=== PATIENT | female | born 1940 | race Caucasian/White ===

== ENCOUNTER 2016-12-17 11:35 | Inpatient (IN) ==
--- NOTE | 2016-12-17 12:34 | Ultrasound Report ---
Exam: US venous doppler LE RT Indication: Right flank pain Date: 12/17/2016 Findings: Grayscale color flow duplex/Doppler imaging and spectral analysis waveform imaging was performed with real-time ultrasound with image stored and captured. The right common femoral, superficial femoral, popliteal saphenous veins are patent with normal augmentation and compression. There is no evidence of popliteal or [place]ro's cyst. Normal wave form analysis present. Normal color flow Impression: 1. No DVT PROCEDURE INTERPRETED AT [facility] Final Report Signed by: Dr. Dillan Kapoor
[2016-12-17] MEDS ORDERED: ALUMINUM/MAGNES/SIMETH MAX STR 30 ML UDCUP PO PRN (16:38)
[2016-12-17] MEDS ORDERED: ACETAMINOPHEN 325 MG TABLET PO PRN (16:38)
[2016-12-17] MEDS ORDERED: GLUCAGON 1 MG VIAL IM PRN (16:38)
[2016-12-17] MEDS ORDERED: BISACODYL 5 MG TABLET PO PRN (16:38)
[2016-12-17] MEDS ORDERED: HYDROmorphone 2 MG/1 ML VIAL IV PRN (16:38)
[2016-12-17] MEDS ORDERED: ONDANSETRON 4 MG/2 ML VIAL IV PRN (16:38)
[2016-12-17] MEDS ORDERED: SODIUM CHLORIDE 0.45% 1,000 ML IV SCH (17:00)
--- NOTE | 2016-12-17 17:02 | General Surg History&Physical ---
Assessment and Plan - Time spent with patient Time spent with patient: Greater than 30 minutes (1) Hematoma of right lower extremity Status: Acute Assessment and plan: Impression: 1. Hematoma of the right lower extremity 2. Chonic venous stasis disease 3. Obesity 4. CRF Plan> surgical debridement and wound care. Current Visit: Yes History of Present Illness Chief complaint: Hematoma of the right leg History of present illness: Ms. Moreau is a 76 year old female obese renal failure patient who sustained trauma to the right leg last week and developed swelling and brusing. Onset of drainage today and has large amount of necrotic tissue present. She had dialysis today and feeling extremily weak and nauseated. She is in no shape to go home and needs surgery for debridement and drainage of the right leg in surgery. Allergies Allergy/AdvReac Type Severity Reaction Status Date / Time Penicillins Allergy Severe UNCONSCIOUS Verified 04/12/15 08:23 Medical,Surgical,& Family Hx - Medical History Neurology: No history of: Seizures Renal: History of: Dialysis - Surgical History Abdominal Surgeries: Surgical HX of: Cholecystectomy Orthopedic Surgeries: Surgical HX of;: Orthopedic Surgery - Social History Smoking Status: Never smoker Marital Status: Lives With:: Spouse Functional capacity: wheelchair bound Exam - Constitutional Vitals: Period Temp Pulse Resp BP Sys/Harrison Pulse Ox Last 24 Hr 97.2 F 71 14 157/68 97 General appearance: mild distress - Head Head exam: Present: normal inspection - ENT ENT exam: Present: normal exam - Neck Neck exam: Present: normal inspection - Respiratory Respiratory exam: Present: clear to auscultation bilaterally, rales, rhonchi - Cardiovascular Cardiovascular exam: Present: RRR - GI/Abdominal GI/Abdominal exam: Present: hypoactive bowel sounds, soft. Absent: tenderness - Extremities Exam Extremities exam: Present: other (Large hematoma of the right leg with drainage and necrotic skin of 2/3 of the leg) - Back Exam Back exam: Present: normal inspection - Neurological Exam Neurological exam: Present: alert, oriented X3, CN II-XII intact - Skin Skin exam: Present: normal color, warm, dry 12 point system: reviewed and no additional remarkable complaints except as stated Quality Measures - VTE Contraindication to Pharmacological VTE Prophylaxis: High Risk of Bleeding
--- NOTE | 2016-12-17 17:04 | EKG Report ---
Stationary ECG Study [facility] Test Date: 12/17/2016 5:01:06 PM Pat Name: ALBA RODRIGUES Department: Room: 343 Gender: F Propagation Manager: SEBASTIÁN : 1940 Requested by: Maximiliano Lechuga Order Number: [id number] Reading MD: LISA JOAQUIN Intervals [place] Rate: 82 P: 87 IN: 254 QRS: -40 QRSD: 82 T: 65 QT: 402 QTc: 440 Interpretive Statements SINUS RHYTHM WITH PROLONGED IN INTERVAL WITH OCCASIONAL SUPRAVENTRICULAR PREMATURE COMPLEXES MARKED LEFT AXIS DEVIATION Electronically Signed On 12-17-16 18:07:18 CDT by LISA JOAQUIN [email or web address]
[2016-12-17 17:37] LABS: Basophils % 0.4 % (0.0-0.8); Eosinophils # 0.1 10*3/uL (0.0-0.87); Eosinophils % 1.4 % (0.00-10.9); Hematocrit 33.3 VOL% (35.7-47.0); Hemoglobin 10.4 GM/DL (12.0-16.0); Immature Granulocytes % 2.1 %; Immature Granulocytes Absolute 0.21 #; Lymphocytes # 1.4 10*3/uL (1.4-4.0); Lymphocytes % 14.1 % (21.3-54.2); Mean Corpuscular HGB Conc 31.2 GM/DL (32-36); Mean Corpuscular Hemoglobin 33 PG (27-34); Mean Corpuscular Volume 104.1 FL (87-102); Monocytes # 0.7 10*3/uL (0.11-0.8); Monocytes % 6.5 % (1.7-12.7); Neutrophils # 7.6 10*3/uL (1.4-7.4); Neutrophils % 75.5 % (38.7-73.9); Platelet Count 157 T/CUMM (130-400); Red Cell Distribution Width 14.3 % (9.3-17.3)
[2016-12-17 17:48] LABS: PT Patient Result 10.3 SECS; Partial Thromboplastin Time 25.8 SECS (0-40)
--- NOTE | 2016-12-17 18:02 | XRay Report ---
Portable chest Date: 12/17/2016 Clinical history: Respiratory preoperative evaluation Comparison: 08/01/2014 Technique: Portable AP sitting chest Findings: Stable cardiomegaly with calcification in the aortic knob. Expiratory chest with progressive diffuse parenchymal findings especially at the lung bases. Stable mediastinum and osseous structures. Metallic stent in the left subclavian location. Impression: Limited expiratory chest with progressive mild CHF with atelectasis at the lung bases. Metallic stent and left subclavian location. PROCEDURE INTERPRETED AT [facility] DEPARTMENT OF RADIOLOGY Final Report Signed by: Dr. Ifeoma Foote
[2016-12-17 18:13] LABS: Albumin 3.2 G/DL (3.4-5.0); Bilirubin,Total 0.4 MG/DL (0.2-1.0); Calcium 8.9 MG/DL (8.5-10.1); Osmolality,Calculated 289.3 MOS/KG (273-304); Total Protein 6.5 G/DL (6.4-8.3)
[2016-12-17] MEDS: DOCUSATE SODIUM 100 MG CAPSULE PO SCH (21:28)
[2016-12-17] MEDS: GABAPENTIN 100 MG CAPSULE PO SCH (21:28)
[2016-12-17] MEDS: MEROPENEM 500 MG in SODIUM CHLORIDE 0.9% 100 ML IV SCH (21:30)
[2016-12-18] MEDS: DEXTROSE 50% 25 GM/50 ML VIAL IV PRN (08:11)
[2016-12-18] MEDS: DEXTROSE 5% NACL 0.45% 1,000 ML IV SCH (08:27)
--- NOTE | 2016-12-18 08:34 | Internal Medicine Consult Note ---
Assessment and Plan (1) Hematoma of right lower extremity Problem details: Debridement by surgery yesterday. Status: Acute Assessment and plan: 76-year-old female admitted to acute care * Hematoma of the right lower extremity. She will undergo excision and debridement today. Started on empiric antibiotics * End-stage renal disease. On hemodialysis 3 times a week. Consult renal * Hypotension. Continue midodrine * Diabetes. She is on a sliding scale. Continue Amaryl * Depression. She is doing well * Discussed with patient and her Current Visit: Yes (2) End-stage renal disease on hemodialysis Problem details: HD today Status: Acute Current Visit: Yes (3) Diabetes Status: Acute Current Visit: Yes (4) Orthostatic hypertension Status: Acute Current Visit: Yes (5) Hyperlipidemia Status: Acute Current Visit: Yes (6) Depression Status: Acute Current Visit: Yes (7) Morbid obesity Status: Acute Current Visit: Yes History of Present Illness - Data of Consult Patient: known to practice within the last 3 years - Consult Narrative Reason for consult: Medical management History of present illness: Ms. Moreau is a 76 year old female with history of multiple medical problems including diabetes, end-stage renal disease on hemodialysis 3 times a week, orthostatic hypotension, morbid obesity who was admitted because of large hematoma with necrotic tissue on the right lower extremity after she sustained trauma. She developed swelling and bruising. Skin has broken down. She was seen in the office and referred to surgery. Patient denies any chest pain or shortness of breath. Patient denies any nausea vomiting or diarrhea. Patient denies any fever or chills. She is having significant pain on in her lower extremity. She lives at home with her . No history of smoking or alcohol use. CC: [place] Marina MD - Home Medications and Allergies Home Medications: Home Medications Medication Instructions Recorded Confirmed Type Aspirin [Ecotrin] 81 mg PO DAILY 12/17/16 12/17/16 History Cinacalcet [Sensipar] 30 mg PO DAILY 12/17/16 12/17/16 History Ciprofloxacin Tab [Cipro Tab] 250 mg PO DAILY 12/17/16 12/17/16 History Gabapentin [Gabapentin] 100 mg PO TID 12/17/16 12/17/16 History Glimepiride [Amaryl] 6 mg PO DAILY W/BREAKFAST 06/28/17 06/28/17 History Metoclopramide HCl 5 mg PO DAILY 12/17/16 12/17/16 History Midodrine HCl 5 mg PO DAILY 12/17/16 12/17/16 History Pravastatin Sodium 80 mg PO DAILY 12/17/16 12/17/16 History Sertraline [Zoloft] 50 mg PO DAILY 12/17/16 12/17/16 History Sevelamer Carbonate Tab [Renvela 800 mg PO TID W/MEALS 12/17/16 12/17/16 History Tab] Allergies/Adverse Reactions: Allergies Allergy/AdvReac Type Severity Reaction Status Date / Time Penicillins Allergy Severe UNCONSCIOUS Verified 04/12/15 08:23 12 point system: reviewed and no additional remarkable complaints except as stated (As mentioned in HPI) Medical,Surgical,& Family Hx - Medical History Cardio: History of: Hypertension (no medications) Neurology: History of: Cerebrovascular Accident (15+ years-no residual), Peripheral Neuropathy No history of: Seizures HEENT: History of: Eye Problem (glasses), Dental Problems (dentures) Endocrine: History of: Diabetes Mellitus (NIDDM) Respiratory: History of: Obstructive Sleep Apnea (no Cpap) Renal: History of: Dialysis, Renal Problems (polycystic kidneys) - Surgical History Cardiac Surgeries: Sugical HX of: Cardiac Catheterization (stents x2), Vascular Access Devices (left arm graft) HEENT Surgeries: Surgical HX of: Eye Surgery (cataracts-bilateral) Abdominal Surgeries: Surgical HX of: Cholecystectomy, Hernia Repair Reproductive Surgeries: Surgical HX of;: Hysterectomy Orthopedic Surgeries: Surgical HX of;: Orthopedic Surgery - Family History Family History: Reports;: Family Cancer (brothers-kidney), Family Diabetes ( mother), Family Hypertension (parents), Family Stroke (parents) - Social History Smoking Status: Never smoker Frequency of Alcohol Use: None Type of Drug Use: None Marital Status: Lives With:: Spouse Functional capacity: wheelchair bound (Uses a power chair) Exam (Progress Note) - Constitutional Vitals: Period Temp Pulse Resp BP Sys/Harrison Pulse Ox Last 24 Hr 97.0 F-99.6 F 71-92 14-20 149-188/68-95 97-98 Exam: Examination: GENERAL: Obese white female who is in no acute distress HEENT: PERRLA. EOMI. Mucous membranes are moist. NECK: Neck is supple. No JVD. No carotid bruit. No thyromegaly. CVS: Regular rate and rhythm. S1 and S2 are normal. RESPIRATORY: Lungs are clear. No rales or rhonchi. ABDOMEN: Soft and nontender. Bowel sounds are present. No hepatosplenomegaly. Morbidly obese EXT: Large hematoma of the right leg with drainage and necrotic skin involving at least two third of the leg LEGAL COUNSEL: Patient is awake, alert and oriented to time place and person. Cranial nerves II through XII are grossly intact. She is able to transfer but stays in her power chair SKIN: Warm and dry. MSK: No obvious deformity. Results - Labs CBC & BMP: 12/19/16 05:35 12/19/16 05:35 Lab Results: I have reviewed the past 24 hour labs
--- NOTE | 2016-12-18 09:31 | Nephrology Consult Note ---
History of Present Illness Chief complaint: Admitted for hematoma, referred for ESRD on CHD History of present illness: Ms. Moreau is a 76 year old female with ESRD 2' DM2 on CHD MWF at [facility]. Last HD yesterday with hematoma "bursting open" on dialysis. Admitted for surgical debridement of RLE hematoma. Denies SOB. Access: LAVF, EDW: 128kg. Home Medications Medication Instructions Recorded Confirmed Type Aspirin [Ecotrin] 81 mg PO DAILY 12/17/16 12/17/16 History Cinacalcet [Sensipar] 30 mg PO DAILY 12/17/16 12/17/16 History Ciprofloxacin Tab [Cipro Tab] 250 mg PO DAILY 12/17/16 12/17/16 History Gabapentin [Gabapentin] 100 mg PO TID 12/17/16 12/17/16 History Glimepiride [Amaryl] 6 mg PO DAILY W/BREAKFAST 12/17/16 12/17/16 History Metoclopramide HCl 5 mg PO DAILY 12/17/16 12/17/16 History Midodrine HCl 5 mg PO DAILY 12/17/16 12/17/16 History Pravastatin Sodium 80 mg PO DAILY 12/17/16 12/17/16 History Sertraline [Zoloft] 50 mg PO DAILY 12/17/16 12/17/16 History Sevelamer Carbonate Tab [Renvela 800 mg PO TID W/MEALS 12/17/16 12/17/16 History Tab] Allergies Allergy/AdvReac Type Severity Reaction Status Date / Time Penicillins Allergy Severe UNCONSCIOUS Verified 04/12/15 08:23 Medical,Surgical,& Family Hx - Medical History Cardio: History of: Hypertension (no medications) Neurology: History of: Cerebrovascular Accident (15+ years-no residual), Peripheral Neuropathy No history of: Seizures HEENT: History of: Eye Problem (glasses), Dental Problems (dentures) Endocrine: History of: Diabetes Mellitus (NIDDM) Respiratory: History of: Obstructive Sleep Apnea (no Cpap) Renal: History of: Dialysis, Renal Problems (polycystic kidneys) - Surgical History Cardiac Surgeries: Sugical HX of: Cardiac Catheterization (stents x2), Vascular Access Devices (left arm graft) HEENT Surgeries: Surgical HX of: Eye Surgery (cataracts-bilateral) Abdominal Surgeries: Surgical HX of: Cholecystectomy, Hernia Repair Reproductive Surgeries: Surgical HX of;: Hysterectomy Orthopedic Surgeries: Surgical HX of;: Orthopedic Surgery - Family History Family History: Reports;: Family Cancer (brothers-kidney), Family Diabetes ( mother), Family Hypertension (parents), Family Stroke (parents) - Social History Smoking Status: Never smoker Frequency of Alcohol Use: None Type of Drug Use: None Exam - Vital Signs Vital signs: Period Temp Pulse Resp BP Sys/Harrison Pulse Ox Last 24 Hr 97.0 F-99.6 F 71-92 14-20 149-188/68-95 97-98 - General Appearance General appearance: well-developed, obese, chronically ill EENT: ATNC, PERRL, mucous membranes moist, hearing intact, vision intact Neck: no JVD, no thyromegaly Respiratory: no kyphosis, clear Cardiology: no murmurs, no rub Gastrointestinal: normoactive bowel sounds, no tenderness Integumentary: no rash, warm and dry Neurologic: no focal deficit, no asterixis, alert and oriented x3 Musculoskeletal: no deformities, no erythema (RLE bandaged, C/D/I) Psychiatric: mood/affect appropriate, cooperative Results - Labs CBC & BMP: 12/17/16 17:13 12/17/16 17:13 Assessment and Plan (1) Hematoma of right lower extremity Problem details: Debridement by surgery in OR today. Status: Acute Current Visit: Yes (2) End-stage renal disease on hemodialysis Problem details: No acute indication for HD today Status: Acute Assessment and plan: Next scheduled routine CHD tomorrow. Heparin free to EDW as tolerated by hemodynamics. Current Visit: Yes (3) Diabetes Status: Acute Current Visit: Yes
[2016-12-18] MEDS ORDERED: BUPIVACAINE MPF 0.25% /EPI 30 ML VIAL ONE (09:45)
[2016-12-18] MEDS: SODIUM CHLORIDE 0.9% 250 ML IV SCH ×2 (09:55→22:46)
[2016-12-18] MEDS ORDERED: GENTAMICIN 0.1% CREAM 15 GM TUBE TOP ONE (10:44)
[2016-12-18] MEDS ORDERED: BENZOIN COMPOUND TINCTURE 58 ML BOTTLE TOP ONE (11:14)
[2016-12-18] MEDS: GLIMEPIRIDE 4 MG TABLET PO SCH (11:26)
[2016-12-18] MEDS: SEVELAMER CARBONATE 800 MG TABLET PO SCH ×3 (11:27→17:02)
[2016-12-18] MEDS ORDERED: CHLORHEXIDINE 4% SOLN 118 ML BOTTLE TOP ONE (11:37)
--- NOTE | 2016-12-18 11:45 | Anesthesia Post-Op ---
Anesthesia Post OP - Post Ansesthetic Evaluation Patient seen in post op: Yes Resp: within normal limits CV: within normal limits Mental: within normal limits Temp: within normal limits [id number]: within normal limits Nausea and Vomiting: within normal limits Pain: within normal limits
[2016-12-18] MEDS ORDERED: ACETAMINOPHEN 1,000 MG/100 ML VIAL IV ONE (11:48)
[2016-12-18] MEDS ORDERED: SODIUM CHLORIDE 0.9% 250 ML IV ONE (11:48)
[2016-12-18] MEDS ORDERED: SEVOFLURANE 1 UNIT/15 MINUTE INH ONE (11:48)
[2016-12-18] MEDS ORDERED: MIDAZOLAM 2 MG/2 ML VIAL ONE (11:48)
[2016-12-18] MEDS ORDERED: fentaNYL 100 MCG/2 ML VIAL ONE (11:48)
--- NOTE | 2016-12-18 11:50 | Operative Note ---
Date of procedure: 12/18/16 Pre-op diagnosis: Traumatic wound of the right leg with hematoma Post-op diagnosis: other (Large hematoma in the right leg with partial skin loss ) Procedure: Operative note: Preoperative diagnosis: Traumatic wound of the right leg with fluid blistering and hematoma. Postoperative diagnosis: Large hematoma of the right leg with partial skin loss. Procedure: Excisional debridement of skin subtenons tissue and necrotic skin with evacuation of large hematoma and placement of wound VAC. Surgeon Dr. Lechuga Anesthesia general Brief history: 76-year-old white female who sustained a traumatic injury to her right leg and she is also a dialysis patient. This occurred sometime last week and she was referred to us because of significant blistering of this lower extremity with fluid underneath it. She just completed dialysis and was feeling extremely weak we put her in but her hematocrit was not significantly low. At this point I elected to bring to surgery where he can get a good look at this and find out exactly what we are dealing with. Procedure: With patient in supine position prepped and draped in a sterile fashion timeout and antibiotics completed I initially took the scissors and begin again to remove a good bit of this necrotic surface skin where the blistering had occurred and the fluid was present. Once it was removed we could tell that we had an injured area with a good bit of skin discoloration that was noted some 15 x 20 cm in size. There was a small opening on the anterior portion of it where there was obvious clot present at this time he could tell there was extensive undermining of the skin related to this hematoma that was present. At that point I made a vertical incision through this open this up after we got cultures aerobically and anaerobically of this hematoma. Once we opened this wound that is now 12 cm in length I was able to lift the flaps up medially and laterally and began to evacuate the large amount of clotted blood out of this area. We removed a good bit of clot in this wound itself creating a medial and lateral flaps in this region. There is an area of clear skin loss on the medial aspect of this upper part of the wound that we excised the necrotic skin out. I then continued to clean out the clot and then washed irrigated saline solution to get this is clean as possible. We found loose subcutaneous tissue that would put a Vicryl tie on and divided and removed. With that completed and it is clean as I could possibly get it I did touch several areas with electrocautery try to be sure I had as much bleeding under control as I could possibly find. With looking as dry as it did I elected to put some fibrin glue sprayed onto the entire wound bed to try to reduce the chance of any further recurrence of bleeding. At this point I was difficult to say that I was going be able to save this large amount of skin that was dark and discolored at this time. I thought I might treat this like I would a skin graft and place a wound VAC over it in hopes of getting it to settle down to the base and maybe be able to preserve some of the skin. At that point I then closed this large incision with interrupted 3-0 nylon as well as a portion of the opening on the medial aspect of the upper part of the wound bed. Once I had everything closed that I could close I cleaned up the wound with a wet gauze then we applied benzoin around the wound edge as well as gentamicin to this discolored center portion of the Wound Pl., Mepitel down and we put a black sponge on the back to the 100 continuous. At that point we put a bulky dressing on the leg and took her to recovery room. Estimated blood loss 30 cc Sponge count correct 2 Drains wound VAC in place Complications none Condition stable satisfactory Surgeon / Physician: Maximiliano Lechuga Estimated blood loss: other (30 cc) Specimens: other (Cultures) Condition: stable Disposition: floor Results - Labs CBC & BMP: 12/17/16 17:13 12/17/16 17:13 Discharge Plan - Discharge Medications No Action Sevelamer Carbonate Tab [Renvela Tab] 800 mg PO TID W/MEALS Cinacalcet [Sensipar] 30 mg PO DAILY Midodrine HCl 5 mg PO DAILY Aspirin [Ecotrin] 81 mg PO DAILY Glimepiride [Amaryl] 6 mg PO DAILY W/BREAKFAST Sertraline [Zoloft] 50 mg PO DAILY Ciprofloxacin Tab [Cipro Tab] 250 mg PO DAILY Pravastatin Sodium 80 mg PO DAILY Metoclopramide HCl 5 mg PO DAILY Gabapentin [Gabapentin] 100 mg PO TID - Follow Up or Referral - Forms/Instructions
[2016-12-18] MEDS: HYDROmorphone 2 MG/1 ML VIAL IV PRN ×3 (12:00→21:36)
[2016-12-18] MEDS ORDERED: ONDANSETRON 4 MG/2 ML VIAL IV PRN (12:03)
[2016-12-18] MEDS: MEROPENEM 500 MG in SODIUM CHLORIDE 0.9% 100 ML IV SCH ×2 (13:06→21:40)
[2016-12-18] MEDS: INSULIN REGULAR 100 UNIT/ML SUBCUT SCH ×3 (13:14→21:35)
[2016-12-18] MEDS: GABAPENTIN 100 MG CAPSULE PO SCH ×3 (13:15→21:35)
[2016-12-18] MEDS: DOCUSATE SODIUM 100 MG CAPSULE PO SCH ×2 (13:24→21:35)
[2016-12-18] MEDS: ASPIRIN EC 81 MG TABLET PO SCH (13:24)
[2016-12-18] MEDS: PRAVASTATIN 40 MG TABLET PO SCH (13:24)
[2016-12-18] MEDS: PANTOPRAZOLE 40 MG TABLET PO SCH (13:25)
[2016-12-18] MEDS: MIDODRINE 5 MG TABLET PO SCH (13:25)
[2016-12-18] MEDS: METOCLOPRAMIDE 5 MG TABLET PO SCH (13:25)
[2016-12-18] MEDS: CINACALCET 30 MG TABLET PO SCH (13:25)
[2016-12-18] MEDS: SERTRALINE 50 MG TABLET PO SCH (13:25)
[2016-12-18 15:15] LABS: Hematocrit 30.5 VOL% (35.7-47.0); Hemoglobin 9.6 GM/DL (12.0-16.0)
[2016-12-18] MEDS: GENTAMICIN 0.1% OINT 15 GM TUBE TOP SCH ×2 (16:04→19:42)
[2016-12-19] MEDS: HYDROmorphone 2 MG/1 ML VIAL IV PRN ×2 (05:47→23:38)
[2016-12-19 06:01] LABS: Basophils % 0.3 % (0.0-0.8); Eosinophils # 0.2 10*3/uL (0.0-0.87); Hematocrit 28.8 VOL% (35.7-47.0); Hemoglobin 8.8 GM/DL (12.0-16.0); Lymphocytes % 10.3 % (21.3-54.2); Mean Corpuscular HGB Conc 30.6 GM/DL (32-36); Mean Corpuscular Hemoglobin 32 PG (27-34); Mean Corpuscular Volume 104.7 FL (87-102); Mean Platelet Volume 9.9 FL (9.6-12.0); Monocytes # 0.8 10*3/uL (0.11-0.8); NRBC # 0.02 10*3/uL; Neutrophils # 7.6 10*3/uL (1.4-7.4); Neutrophils % 77.4 % (38.7-73.9); Platelet Count 131 T/CUMM (130-400); Red Blood Count 2.75 MC/CUMM (3.8-5.5); Red Cell Distribution Width 14.8 % (9.3-17.3); White Blood Count 9.8 T/CUMM (4-12)
--- NOTE | 2016-12-19 06:14 | Nephrology Progress Note ---
Nephrology - PN: Subj Interval history: Pt admits to pain in RLE. S/P surgery yesterday. Denies SOB. Exam (PN)-Nephrology - Vital Signs Vital signs: Period Temp Pulse Resp BP Sys/Harrison Pulse Ox Last 24 Hr 96.6 F-99.7 F 66-96 16-20 102-150/47-74 91-100 - General Appearance General appearance: obese, chronically ill EENT: ATNC, PERRL, mucous membranes moist, hearing intact, vision intact Neck: no JVD, no thyromegaly Respiratory: no kyphosis, clear Cardiology: no murmurs, no rub Gastrointestinal: normoactive bowel sounds, no tenderness Integumentary: no rash, warm and dry Neurologic: no focal deficit, no asterixis, alert and oriented x3 Musculoskeletal: no deformities, no clubbing - Lab 12/19/16 05:35 12/17/16 17:13 Most recent lab results Calcium 8.9 MG/DL (8.5-10.1) 12/17/16 17:13 Assessment and Plan (1) Hematoma of right lower extremity Problem details: Debridement by surgery yesterday. Status: Acute Current Visit: Yes (2) End-stage renal disease on hemodialysis Problem details: HD today Status: Acute Assessment and plan: Routine CHD today. Heparin free to EDW as tolerated by hemodynamics. Current Visit: Yes (3) Diabetes Status: Acute Current Visit: Yes
[2016-12-19 06:34] LABS: Calcium 7.4 MG/DL (8.5-10.1); Osmolality,Calculated 289.7 MOS/KG (273-304); Potassium 4.9 MMOL/L (3.5-5.1)
[2016-12-19] MEDS: SEVELAMER CARBONATE 800 MG TABLET PO SCH ×3 (08:17→18:15)
[2016-12-19] MEDS: MEROPENEM 500 MG in SODIUM CHLORIDE 0.9% 100 ML IV SCH ×2 (08:18→20:54)
[2016-12-19] MEDS: GLIMEPIRIDE 4 MG TABLET PO SCH (08:18)
[2016-12-19] MEDS: INSULIN REGULAR 100 UNIT/ML SUBCUT SCH ×4 (08:21→21:11)
--- NOTE | 2016-12-19 08:22 | General Surgery Progress Note ---
Assessment and Plan - Time spent with patient Time spent with patient: Less than 30 minutes (1) Hematoma of right lower extremity Problem details: Debridement by surgery yesterday. Status: Acute Assessment and plan: 12/19/2016. Right lower extremity hematoma, stable postop excisional debridement and evacuation. This injury was more extensive than it first appeared, creating a more extensive postop wound that will be a bit more difficult to manage. We will plan to keep her in the hospital with wound VAC in place over the weekend. We will plan to change the VAC on Thursday and reassess the wound, and consider making discharge plans if it can be managed with outpatient wound VAC at that point. Will await her culture results and adjust antibiotics as indicated. Medically she looks stable, but will continue to watch her H&H and monitor for bleeding. Current Visit: Yes Subjective Patient reports: Present: still having pain, tolerating a regular diet Exam - Constitutional Vitals: Period Temp Pulse Resp BP Sys/Harrison Pulse Ox Last 24 Hr 96.6 F-99.7 F 66-111 16-20 102-148/47-73 91-100 General appearance: no acute distress, morbidly obese - Extremities Exam Extremities exam: Present: other (Right lower extremity is bandaged. There is no unusual swelling, no neurovascular compromise of toes. Wound VAC is in place with essentially no drainage in the canister. She complains of moderate discomfort in the right lower leg.) - Neurological Exam Neurological exam: Present: alert, oriented X3 Speech: Present: normal - Skin Skin exam: Present: warm. Absent: erythema, mottled, pallor Results - Labs CBC & BMP: 12/19/16 05:35 12/19/16 05:35 Lab Results: I have reviewed the past 24 hour labs (Postop H&H is stable) Quality Measures - VTE Contraindication to Pharmacological VTE Prophylaxis: High Risk of Bleeding
--- NOTE | 2016-12-19 08:45 | Internal Med Progress Note ---
Assessment and Plan (1) Hematoma of right lower extremity Problem details: Debridement by surgery yesterday. Status: Acute Assessment and plan: 76-year-old female admitted to acute care * Hematoma of the right lower extremity. She underwent extensive debridement yesterday. She has a wound VAC on the leg * End-stage renal disease. On hemodialysis 3 times a week * Hypertension. Continue current medication * Diabetes. She is on a sliding scale. Continue Amaryl * Discussed with patient and her Current Visit: Yes (2) End-stage renal disease on hemodialysis Problem details: HD today Status: Acute Current Visit: Yes (3) Diabetes Status: Acute Current Visit: Yes (4) Orthostatic hypertension Status: Acute Current Visit: Yes (5) Hyperlipidemia Status: Acute Current Visit: Yes (6) Depression Status: Acute Current Visit: Yes (7) Morbid obesity Status: Acute Current Visit: Yes Internal Medicine - PN: Subj Interval history: She is feeling okay. She is complaining of pain in her leg. No chest pain or shortness of breath Exam (Progress Note) - Constitutional Vitals: Period Temp Pulse Resp BP Sys/Harrison Pulse Ox Last 24 Hr 96.6 F-99.7 F 66-111 16-20 102-148/47-73 91-100 Exam: Examination: GENERAL: Obese white female who is in no acute distress HEENT: PERRLA. EOMI. NECK: Neck is supple. CVS: Regular rate and rhythm. S1 and S2 are normal. RESPIRATORY: Lungs are clear. ABDOMEN: Soft and nontender. EXT: Patient has a dressing on her leg with wound VAC INSTRUMENTATION AND CONTROLS DESIGNER: No change MSK: No obvious deformity. Results - Labs CBC & BMP: 12/19/16 05:35 12/19/16 05:35 Lab Results: I have reviewed the past 24 hour labs Quality Measures - VTE Contraindication to Pharmacological VTE Prophylaxis: High Risk of Bleeding
[2016-12-19] MEDS: GABAPENTIN 100 MG CAPSULE PO SCH ×3 (10:09→20:54)
[2016-12-19] MEDS: GENTAMICIN 0.1% OINT 15 GM TUBE TOP SCH ×3 (10:09→20:54)
[2016-12-19] MEDS: DOCUSATE SODIUM 100 MG CAPSULE PO SCH ×2 (10:09→20:54)
[2016-12-19] MEDS: PRAVASTATIN 40 MG TABLET PO SCH (10:09)
[2016-12-19] MEDS: ASPIRIN EC 81 MG TABLET PO SCH (10:09)
[2016-12-19] MEDS: MIDODRINE 5 MG TABLET PO SCH (10:09)
[2016-12-19] MEDS: SERTRALINE 50 MG TABLET PO SCH (10:10)
[2016-12-19] MEDS: CINACALCET 30 MG TABLET PO SCH (10:10)
[2016-12-19] MEDS: METOCLOPRAMIDE 5 MG TABLET PO SCH (10:10)
[2016-12-19] MEDS: PANTOPRAZOLE 40 MG TABLET PO SCH (10:10)
--- NOTE | 2016-12-19 12:10 | Dialysis Note ---
Dialysis Note - Dialysis Note Patient seen on hemodialysis, she is tolerating this well will continue her treatment unchanged.
[2016-12-19] MEDS: DEXTROSE 5% NACL 0.45% 1,000 ML IV SCH (20:57)
[2016-12-19] MEDS: SODIUM CHLORIDE 0.9% 250 ML IV SCH (20:59)
[2016-12-20] MEDS: SODIUM CHLORIDE 0.9% 250 ML IV SCH ×3 (00:22→23:57)
[2016-12-20] MEDS: HYDROmorphone 2 MG/1 ML VIAL IV PRN (06:40)
[2016-12-20] MEDS: MEROPENEM 500 MG in SODIUM CHLORIDE 0.9% 100 ML IV SCH ×2 (08:41→20:57)
[2016-12-20] MEDS: PRAVASTATIN 40 MG TABLET PO SCH (08:42)
[2016-12-20] MEDS: SEVELAMER CARBONATE 800 MG TABLET PO SCH ×3 (08:42→16:20)
[2016-12-20] MEDS: GLIMEPIRIDE 4 MG TABLET PO SCH (08:42)
[2016-12-20] MEDS: ASPIRIN EC 81 MG TABLET PO SCH (08:43)
[2016-12-20] MEDS: PANTOPRAZOLE 40 MG TABLET PO SCH (08:43)
[2016-12-20] MEDS: SERTRALINE 50 MG TABLET PO SCH (08:43)
[2016-12-20] MEDS: DOCUSATE SODIUM 100 MG CAPSULE PO SCH ×2 (08:43→20:57)
[2016-12-20] MEDS: MIDODRINE 5 MG TABLET PO SCH (08:43)
[2016-12-20] MEDS: METOCLOPRAMIDE 5 MG TABLET PO SCH (08:43)
[2016-12-20] MEDS: GENTAMICIN 0.1% OINT 15 GM TUBE TOP SCH ×3 (08:55→21:04)
[2016-12-20] MEDS: GABAPENTIN 100 MG CAPSULE PO SCH ×3 (08:55→20:57)
[2016-12-20] MEDS: INSULIN REGULAR 100 UNIT/ML SUBCUT SCH ×4 (10:22→21:04)
[2016-12-20] MEDS: CINACALCET 30 MG TABLET PO SCH (10:25)
--- NOTE | 2016-12-20 10:29 | General Surgery Progress Note ---
Assessment and Plan - Time spent with patient Time spent with patient: Less than 30 minutes (1) Hematoma of right lower extremity Problem details: Debridement by surgery yesterday. Status: Acute Assessment and plan: Impression: 1. Hematoma of the right lower extremity 2. Chonic venous stasis disease 3. Obesity 4. CRF Plan> surgical debridement and wound care. 12/20/2016 Patient is doing well and stable wound VAC is functioning and the dressings are dry. She is complaining of little more discomfort in the leg today I do not know if this is due to any dependency or edema that she might be having. At this point we are trying to leave the VAC in place to possibly Thursday to change it to see if we can have any survivability of the rest of the skin in the area. Supportive care at this time. Current Visit: Yes Subjective Patient reports: Present: no new complaints, pain is less, tolerating a regular diet, afebrile. Absent: fever Exam - Constitutional Vitals: Period Temp Pulse Resp BP Sys/Harrison Pulse Ox Last 24 Hr 97.4 F-99.6 F 82-102 14-20 114-153/50-71 91-93 General appearance: mild distress - Head Head exam: Present: normal inspection - ENT ENT exam: Present: normal exam - Neck Neck exam: Present: normal inspection - Respiratory Respiratory exam: Present: clear to auscultation bilaterally, rales - Cardiovascular Cardiovascular exam: Present: RRR - GI/Abdominal GI/Abdominal exam: Present: normal bowel sounds, soft - Extremities Exam Extremities exam: Present: other (Dressing still in place with wound VAC functioning well.) - Back Exam Back exam: Present: normal inspection - Neurological Exam Neurological exam: Present: alert, oriented X3, CN II-XII intact - Skin Skin exam: Present: normal color, warm, dry Results - Labs CBC & BMP: 12/19/16 05:35 12/19/16 05:35 Lab Results: I have reviewed the past 24 hour labs Quality Measures - VTE Contraindication to Pharmacological VTE Prophylaxis: High Risk of Bleeding
[2016-12-20] MEDS: DEXTROSE 5% NACL 0.45% 1,000 ML IV SCH (10:30)
--- NOTE | 2016-12-20 11:23 | Nephrology Progress Note ---
Nephrology - PN: Subj Interval history: Ms. Levy is seen in follow-up of her end-stage renal disease. She underwent dialysis yesterday and tolerated it well. She has a wound VAC over her right lower leg and this is managing the wound from drainage of a fairly large hematoma over her right asher. As per Dr. Terry the plan is to change her wound VAC on Thursday. We will dialyze again on Thursday. Exam (PN)-Nephrology - Vital Signs Vital signs: Period Temp Pulse Resp BP Sys/Harrison Pulse Ox Last 24 Hr 97.4 F-99.6 F 82-102 14-20 114-153/50-71 91-93 - Lab 12/19/16 05:35 12/19/16 05:35 Most recent lab results Calcium 7.4 MG/DL (8.5-10.1) L 12/19/16 05:35
--- NOTE | 2016-12-20 19:16 | Internal Med Progress Note ---
Assessment and Plan (1) Diabetes Status: Chronic Current Visit: Yes Qualifiers: Diabetes mellitus type: type 2 Diabetes mellitus complication status: with kidney complications Diabetes mellitus complication detail: with chronic kidney disease Diabetes mellitus intermediate insulin use: with intermediate use Chronic kidney disease stage: on chronic dialysis Qualified Code(s): E11.22 - Type 2 diabetes mellitus with diabetic chronic kidney disease; N18.6 - End stage renal disease; Z79.4 - [facility] (current) use of insulin; Z99.2 - Dependence on renal dialysis (2) End-stage renal disease on hemodialysis Problem details: HD today Status: Chronic Current Visit: Yes (3) Hematoma of right lower extremity Problem details: Debridement by surgery yesterday. Status: Acute Current Visit: Yes Internal Medicine - PN: Subj Interval history: This is a 76 year old female patient of Dr. Marina with history of ESRD on hemodialysis per Dr. Guevara, HTN, DM, who had a lower extremity hematoma from an injury requring surgical evacuation. She is now on wound vac and feeling better. Question of whether skin graft is working. Further evaluation Thursday per Dr. Lechuga. Exam (Progress Note) - Constitutional Vitals: Period Temp Pulse Resp BP Sys/Harrison Pulse Ox Last 24 Hr 97.4 F-98.3 F 63-102 14-20 114-153/50-71 91-93 General appearance: no acute distress - Head Head exam: Present: normocephalic - Eye Eye exam: Present: EOMI - Respiratory Respiratory exam: Present: clear to auscultation bilaterally. Absent: rhonchi, wheezes - Cardiovascular Cardiovascular exam: Present: regular rate and rhythm - GI/Abdominal GI/Abdominal exam: Present: normal bowel sounds, soft. Absent: tenderness - Extremities Exam Extremities exam: Present: other (bandage in place). Absent: edema - Neurological Exam Neurological exam: Present: alert - Psychiatric Psychiatric exam: Present: normal mood - Skin Skin exam: Present: warm, dry Results - Labs CBC & BMP: 12/19/16 05:35 12/19/16 05:35 Quality Measures - VTE Contraindication to Pharmacological VTE Prophylaxis: High Risk of Bleeding
[2016-12-21] MEDS: ALBUTEROL/IPRATROPIUM 3 ML NEB RESP TX SCH ×4 (00:47→19:45)
[2016-12-21 03:31] LABS: Basophils % 0.3 % (0.0-0.8); Eosinophils # 0.1 10*3/uL (0.0-0.87); Eosinophils % 1.1 % (0.00-10.9); Hematocrit 27.8 VOL% (35.7-47.0); Hemoglobin 8.7 GM/DL (12.0-16.0); Immature Granulocytes % 2.1 %; Immature Granulocytes Absolute 0.19 #; Lymphocytes # 1.2 10*3/uL (1.4-4.0); Lymphocytes % 13.3 % (21.3-54.2); Mean Corpuscular HGB Conc 31.3 GM/DL (32-36); Mean Corpuscular Hemoglobin 32 PG (27-34); Mean Corpuscular Volume 101.8 FL (87-102); Mean Platelet Volume 10.4 FL (9.6-12.0); Monocytes # 0.9 10*3/uL (0.11-0.8); Monocytes % 9.2 % (1.7-12.7); Neutrophils # 6.9 10*3/uL (1.4-7.4); Platelet Count 141 T/CUMM (130-400); Red Blood Count 2.73 MC/CUMM (3.8-5.5); Red Cell Distribution Width 15.3 % (9.3-17.3); White Blood Count 9.3 T/CUMM (4-12)
[2016-12-21 04:23] LABS: Calcium 8.4 MG/DL (8.5-10.1); Magnesium 2.5 MG/DL (1.8-2.4); Osmolality,Calculated 286.1 MOS/KG (273-304); Potassium 4.3 MMOL/L (3.5-5.1)
[2016-12-21] MEDS: INSULIN REGULAR 100 UNIT/ML SUBCUT SCH ×4 (08:23→21:11)
[2016-12-21] MEDS: MEROPENEM 500 MG in SODIUM CHLORIDE 0.9% 100 ML IV SCH ×2 (08:24→21:05)
[2016-12-21] MEDS: METOCLOPRAMIDE 5 MG TABLET PO SCH (08:26)
[2016-12-21] MEDS: CINACALCET 30 MG TABLET PO SCH (08:27)
[2016-12-21] MEDS: GLIMEPIRIDE 4 MG TABLET PO SCH (08:27)
[2016-12-21] MEDS: ASPIRIN EC 81 MG TABLET PO SCH (08:27)
[2016-12-21] MEDS: PRAVASTATIN 40 MG TABLET PO SCH (08:28)
[2016-12-21] MEDS: PANTOPRAZOLE 40 MG TABLET PO SCH (08:28)
[2016-12-21] MEDS: SERTRALINE 50 MG TABLET PO SCH (08:28)
[2016-12-21] MEDS: SEVELAMER CARBONATE 800 MG TABLET PO SCH ×3 (08:28→16:41)
[2016-12-21] MEDS: DOCUSATE SODIUM 100 MG CAPSULE PO SCH ×2 (08:28→21:05)
[2016-12-21] MEDS: GABAPENTIN 100 MG CAPSULE PO SCH ×3 (08:35→21:05)
[2016-12-21] MEDS: MIDODRINE 5 MG TABLET PO SCH (08:35)
[2016-12-21] MEDS: GENTAMICIN 0.1% OINT 15 GM TUBE TOP SCH ×3 (08:40→21:11)
[2016-12-21] MEDS ORDERED: SKIN HEALING OINT (AQUAPHOR) 50 GM TUBE TOP PRN (09:40)
[2016-12-21] MEDS ORDERED: CHLORHEXIDINE 4% SOLN 118 ML BOTTLE TOP ONE (09:40)
--- NOTE | 2016-12-21 09:40 | General Surgery Progress Note ---
Assessment and Plan - Time spent with patient Time spent with patient: Less than 30 minutes (1) Hematoma of right lower extremity Problem details: Debridement by surgery yesterday. Status: Acute Assessment and plan: Impression: 1. Hematoma of the right lower extremity 2. Chonic venous stasis disease 3. Obesity 4. CRF Plan> surgical debridement and wound care. 12/20/2016 Patient is doing well and stable wound VAC is functioning and the dressings are dry. She is complaining of little more discomfort in the leg today I do not know if this is due to any dependency or edema that she might be having. At this point we are trying to leave the VAC in place to possibly Thursday to change it to see if we can have any survivability of the rest of the skin in the area. Supportive care at this time. 12/21/2016 Patient continues to do well with a wound VAC intact. That will be changed tomorrow to see what her status is on her wound and see if we did have to do any additional surgery. We were informed that she had a little sacral area but on inspection there is really no ulcer no redness or anything in that area at this time. Current Visit: Yes Subjective Patient reports: Present: feels better, pain is less, tolerating a regular diet , bowel movement, afebrile Exam - Constitutional Vitals: Period Temp Pulse Resp BP Sys/Harrison Pulse Ox Last 24 Hr 96.9 F-98.3 F 63-92 16-20 135-188/57-78 91-98 General appearance: mild distress - Head Head exam: Present: normal inspection - ENT ENT exam: Present: normal exam - Neck Neck exam: Present: normal inspection - Respiratory Respiratory exam: Present: clear to auscultation bilaterally, rales - Cardiovascular Cardiovascular exam: Present: RRR - GI/Abdominal GI/Abdominal exam: Present: normal bowel sounds, soft - Extremities Exam Extremities exam: Present: other (Wound VAC is in place at this time and will be changed tomorrow) - Back Exam Back exam: Present: other (Sacral area seen and there is no real lesion or sore in that region at this time.) - Neurological Exam Neurological exam: Present: alert, oriented X3, CN II-XII intact - Skin Skin exam: Present: normal color, warm, dry Results - Labs CBC & BMP: 12/21/16 02:25 12/21/16 02:26 Lab Results: I have reviewed the past 24 hour labs Quality Measures - VTE Contraindication to Pharmacological VTE Prophylaxis: High Risk of Bleeding
--- NOTE | 2016-12-21 10:04 | Nephrology Progress Note ---
Nephrology - PN: Subj Interval history: Ms. Levy is seen in follow-up of her end-stage renal disease and recent drainage of a significant hematoma over the right asher. She has her wound VAC over that wound and that will be changed tomorrow with an assessment of skin viability etc. She is doing well and her chest is clear. She is not having as much pain as she was immediately postop and is not taking significant analgesia now. Exam (PN)-Nephrology - Vital Signs Vital signs: Period Temp Pulse Resp BP Sys/Harrison Pulse Ox Last 24 Hr 96.9 F-98.3 F 63-92 16-20 135-188/57-78 91-98 - Lab 12/21/16 02:25 12/21/16 02:26 Most recent lab results Calcium 8.4 MG/DL (8.5-10.1) L 12/21/16 02:26 Phosphorus 5.4 MG/DL (2.5-4.9) H 12/21/16 02:25 Magnesium 2.5 MG/DL (1.8-2.4) H 12/21/16 02:26
--- NOTE | 2016-12-21 12:57 | Internal Med Progress Note ---
Assessment and Plan (1) Diabetes Status: Chronic Current Visit: Yes Qualifiers: Diabetes mellitus type: type 2 Diabetes mellitus complication status: with kidney complications Diabetes mellitus complication detail: with chronic kidney disease Diabetes mellitus alf insulin use: with alf use Chronic kidney disease stage: on chronic dialysis Qualified Code(s): E11.22 - Type 2 diabetes mellitus with diabetic chronic kidney disease; N18.6 - End stage renal disease; Z79.4 - [facility] (current) use of insulin; Z99.2 - Dependence on renal dialysis (2) End-stage renal disease on hemodialysis Problem details: HD today Status: Chronic Current Visit: Yes (3) Hematoma of right lower extremity Problem details: Debridement by surgery yesterday. Status: Acute Current Visit: Yes Internal Medicine - PN: Subj Interval history: This is a 76 year old female patient of Dr. Marina with history of ESRD on hemodialysis per Dr. Guevara, HTN, DM, who had a lower extremity hematoma from an injury requring surgical evacuation. She is now on wound vac and feeling better. Question of whether skin graft is working. Further evaluation Thursday per Dr. Lechuga. She is feeling better today. Awaiting evaluation of hematoma by Dr. Lechuga in the morning. She may need a skin graft. Exam (Progress Note) - Constitutional Vitals: Period Temp Pulse Resp BP Sys/Harrison Pulse Ox Last 24 Hr 96.9 F-98.4 F 63-92 16-20 139-188/63-78 91-98 Exam: General appearance: no acute distress - Respiratory Respiratory exam: Present: clear to auscultation bilaterally - Cardiovascular Cardiovascular exam: Present: regular rate and rhythm - GI/Abdominal GI/Abdominal exam: Present: normal bowel sounds, soft. Absent: tenderness - Extremities Exam Extremities exam: Present: other (bandage in place). Absent: edema - Neurological Exam Neurological exam: Present: alert - Psychiatric Psychiatric exam: Present: normal mood - Skin Skin exam: Present: warm, dry Results - Labs CBC & BMP: 12/21/16 02:25 12/21/16 02:26 Quality Measures - VTE Contraindication to Pharmacological VTE Prophylaxis: High Risk of Bleeding
[2016-12-21] MEDS: SODIUM CHLORIDE 0.9% 250 ML IV SCH (13:08)
[2016-12-22] MEDS: ALBUTEROL/IPRATROPIUM 3 ML NEB RESP TX SCH ×5 (00:30→23:55)
[2016-12-22] MEDS: SODIUM CHLORIDE 0.9% 250 ML IV SCH ×2 (02:57→15:57)
[2016-12-22] MEDS ORDERED: SODIUM CHLORIDE 0.9% 250 ML IV PRN (08:07)
[2016-12-22] MEDS: INSULIN REGULAR 100 UNIT/ML SUBCUT SCH ×4 (08:08→20:05)
[2016-12-22] MEDS: INSULIN GLARGINE 100 UNIT/ML SUBCUT SCH ×2 (08:23→16:26)
[2016-12-22] MEDS: HYDROmorphone 2 MG/1 ML VIAL IV PRN (08:38)
--- NOTE | 2016-12-22 09:25 | General Surgery Progress Note ---
Assessment and Plan (1) Hematoma of right lower extremity Problem details: Debridement by surgery yesterday. Status: Acute Assessment and plan: 12/19/2016. Right lower extremity hematoma, stable postop excisional debridement and evacuation. This injury was more extensive than it first appeared, creating a more extensive postop wound that will be a bit more difficult to manage. We will plan to keep her in the hospital with wound VAC in place over the weekend. We will plan to change the VAC on Thursday and reassess the wound, and consider making discharge plans if it can be managed with outpatient wound VAC at that point. Will await her culture results and adjust antibiotics as indicated. Medically she looks stable, but will continue to watch her H&H and monitor for bleeding. 12/22/2016. Hematoma with traumatic skin loss right lower extremity. She is stable postop. Unfortunately is difficult to tell how much viability remains of the flap. We will favor continuing to observe this for the next several days. We will plan to let her dialyzed and be transfused today, and keep her current wound care treatment regimen until . Will change the VAC again at that time, and make a decision as to whether or not she needs further debridement. Current Visit: Yes Subjective Patient reports: Present: feels better, pain is less Exam - Constitutional Vitals: Period Temp Pulse Resp BP Sys/Harrison Pulse Ox Last 24 Hr 97.1 F-98.4 F 75-96 16-20 134-154/66-73 92-100 General appearance: no acute distress - Extremities Exam Extremities exam: Present: other (Right lower extremity wound VAC dressing change today. The edema is well controlled. Ecchymosis is resolving. Unfortunately the anterior tibial skin is still somewhat dusky. There are areas do appear hopefully vascularized and viable, however at this point is difficult to tell. The sutures are intact, there is no drainage or evidence of infection. There is a small area of oozing at the most inferior aspect of the wound; this spontaneously subsided with gentle pressure. She is not unusually tender. The calf is soft and compressible) Results - Labs CBC & BMP: 12/21/16 02:25 12/21/16 02:26 Lab Results: I have reviewed the past 24 hour labs (Hematocrit is still low; understand she is already scheduled for transfusion during dialysis today) Quality Measures - VTE Contraindication to Pharmacological VTE Prophylaxis: High Risk of Bleeding
--- NOTE | 2016-12-22 09:41 | Dialysis Note ---
Dialysis Note - Dialysis Note Patient seen on dialysis she is tolerating the procedure blood pressure 144/72 CV regular rate Lungs clear to auscultation Abdomen is soft
[2016-12-22] MEDS: MEROPENEM 500 MG in SODIUM CHLORIDE 0.9% 100 ML IV SCH ×2 (14:52→20:13)
[2016-12-22] MEDS: SEVELAMER CARBONATE 800 MG TABLET PO SCH ×2 (14:52→16:55)
[2016-12-22] MEDS: DOCUSATE SODIUM 100 MG CAPSULE PO SCH ×2 (14:53→20:13)
[2016-12-22] MEDS: GENTAMICIN 0.1% OINT 15 GM TUBE TOP SCH ×3 (14:53→20:10)
[2016-12-22] MEDS: GABAPENTIN 100 MG CAPSULE PO SCH ×3 (14:53→20:12)
[2016-12-22] MEDS: MIDODRINE 5 MG TABLET PO SCH (15:07)
[2016-12-22] MEDS: METOCLOPRAMIDE 5 MG TABLET PO SCH (15:08)
[2016-12-22] MEDS: PANTOPRAZOLE 40 MG TABLET PO SCH (15:08)
[2016-12-22] MEDS: GLIMEPIRIDE 4 MG TABLET PO SCH (15:08)
[2016-12-22] MEDS: CINACALCET 30 MG TABLET PO SCH (15:08)
[2016-12-22] MEDS: SERTRALINE 50 MG TABLET PO SCH (15:08)
[2016-12-22] MEDS: PRAVASTATIN 40 MG TABLET PO SCH (15:09)
[2016-12-22] MEDS: ASPIRIN EC 81 MG TABLET PO SCH (15:09)
--- NOTE | 2016-12-22 20:28 | Internal Med Progress Note ---
Assessment and Plan (1) Diabetes Status: Chronic Current Visit: Yes Qualifiers: Diabetes mellitus type: type 2 Diabetes mellitus complication status: with kidney complications Diabetes mellitus complication detail: with chronic kidney disease Diabetes mellitus [facility] insulin use: with [facility]p use Chronic kidney disease stage: on chronic dialysis Qualified Code(s): E11.22 - Type 2 diabetes mellitus with diabetic chronic kidney disease; N18.6 - End stage renal disease; Z79.4 - [facility] (current) use of insulin; Z99.2 - Dependence on renal dialysis (2) End-stage renal disease on hemodialysis Problem details: HD today Status: Chronic Current Visit: Yes (3) Hematoma of right lower extremity Problem details: Debridement by surgery yesterday. Status: Acute Current Visit: Yes (4) Anemia, chronic disease Status: Chronic Current Visit: Yes Internal Medicine - PN: Subj Interval history: This is a 76 year old female patient of Dr. Marina with history of ESRD on hemodialysis per Dr. Guevara, HTN, DM, who had a lower extremity hematoma from an injury requring surgical evacuation. She is now on wound vac and feeling better. Question of whether skin graft is working. Further evaluation Thursday per Dr. Lechuga. She is feeling better today. Awaiting evaluation of hematoma by Dr. Lechuga in the morning. She may need a skin graft. She had blood transfusion today in dialysis. The skin wound will be further evaluated by Dr. Lechuga to determine whether she needs more debridement. Exam (Progress Note) - Constitutional Vitals: Period Temp Pulse Resp BP Sys/Harrison Pulse Ox Last 24 Hr 97.0 F-97.8 F 75-96 16-20 125-153/61-73 93-100 Exam: General appearance: no acute distress - Respiratory Respiratory exam: Present: clear to auscultation bilaterally - Cardiovascular Cardiovascular exam: Present: regular rate and rhythm - GI/Abdominal GI/Abdominal exam: Present: normal bowel sounds, soft - Extremities Exam Extremities exam: Present: other (bandage in place). Absent: edema - Neurological Exam Neurological exam: Present: alert - Psychiatric Psychiatric exam: Present: normal mood - Skin Skin exam: Present: warm, dry Results - Labs CBC & BMP: 12/21/16 02:25 12/21/16 02:26 Quality Measures - VTE Contraindication to Pharmacological VTE Prophylaxis: High Risk of Bleeding
[2016-12-23] MEDS: SODIUM CHLORIDE 0.9% 250 ML IV SCH ×2 (03:57→19:25)
[2016-12-23 05:01] LABS: Basophils % 0.4 % (0.0-0.8); Eosinophils # 0.2 10*3/uL (0.0-0.87); Eosinophils % 1.5 % (0.00-10.9); Hematocrit 31.5 VOL% (35.7-47.0); Hemoglobin 10.1 GM/DL (12.0-16.0); Immature Granulocytes % 1.5 %; Immature Granulocytes Absolute 0.15 #; Lymphocytes # 1.1 10*3/uL (1.4-4.0); Lymphocytes % 11.1 % (21.3-54.2); Mean Corpuscular HGB Conc 32.1 GM/DL (32-36); Mean Corpuscular Hemoglobin 32 PG (27-34); Mean Corpuscular Volume 100.3 FL (87-102); Mean Platelet Volume 10.2 FL (9.6-12.0); Monocytes # 0.9 10*3/uL (0.11-0.8); Monocytes % 8.9 % (1.7-12.7); NRBC # 0.02 10*3/uL; Neutrophils # 7.6 10*3/uL (1.4-7.4); Neutrophils % 76.6 % (38.7-73.9); Platelet Count 172 T/CUMM (130-400); Red Blood Count 3.14 MC/CUMM (3.8-5.5); Red Cell Distribution Width 16.1 % (9.3-17.3); White Blood Count 9.9 T/CUMM (4-12)
[2016-12-23 05:40] LABS: Albumin 2.3 G/DL (3.4-5.0); Bilirubin,Total 0.6 MG/DL (0.2-1.0); Calcium 8.2 MG/DL (8.5-10.1); Potassium 4.6 MMOL/L (3.5-5.1); Total Protein 5.7 G/DL (6.4-8.3)
[2016-12-23] MEDS: ALBUTEROL/IPRATROPIUM 3 ML NEB RESP TX SCH ×3 (06:52→18:55)
[2016-12-23] MEDS: INSULIN REGULAR 100 UNIT/ML SUBCUT SCH ×5 (07:30→21:36)
[2016-12-23] MEDS: DOCUSATE SODIUM 100 MG CAPSULE PO SCH ×2 (08:31→21:29)
[2016-12-23] MEDS: CINACALCET 30 MG TABLET PO SCH (08:31)
[2016-12-23] MEDS: PRAVASTATIN 40 MG TABLET PO SCH (08:32)
[2016-12-23] MEDS: GABAPENTIN 100 MG CAPSULE PO SCH ×3 (08:33→21:29)
[2016-12-23] MEDS: ASPIRIN EC 81 MG TABLET PO SCH (08:33)
[2016-12-23] MEDS: SEVELAMER CARBONATE 800 MG TABLET PO SCH ×3 (08:33→17:55)
[2016-12-23] MEDS: GLIMEPIRIDE 4 MG TABLET PO SCH (08:34)
[2016-12-23] MEDS: SERTRALINE 50 MG TABLET PO SCH (08:34)
[2016-12-23] MEDS: PANTOPRAZOLE 40 MG TABLET PO SCH (08:34)
[2016-12-23] MEDS: MIDODRINE 5 MG TABLET PO SCH (08:34)
[2016-12-23] MEDS: METOCLOPRAMIDE 5 MG TABLET PO SCH (08:34)
[2016-12-23] MEDS: MEROPENEM 500 MG in SODIUM CHLORIDE 0.9% 100 ML IV SCH ×2 (08:35→21:29)
--- NOTE | 2016-12-23 08:58 | Internal Med Progress Note ---
Assessment and Plan (1) Hematoma of right lower extremity Problem details: Debridement by surgery yesterday. Status: Acute Assessment and plan: Wound care as per the surgery recommendations. Continue antibiotics, meropenem IV, day 7 today Current Visit: Yes (2) Morbid obesity Status: Chronic Current Visit: Yes Qualifiers: Obesity type: unspecified obesity type Qualified Code(s): E66.01 - Morbid ( severe) obesity due to excess calories (3) Anemia, chronic disease Status: Chronic Assessment and plan: H&H is stable today, 10.1/31.5. 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 Marina Patient seen and examined on the third floor, accompanied by the at the bedside. No overnight events reported by the nurse or given history by the patient. No fever, nausea, vomiting, shortness of breath, chest pains, Patient has ESRD on hemodialysis, HTN, DM, Has lower extremity hematoma, she is now on wound vac. Having daily evaluation of the wound by surgery. Last dressing change done yesterday. Overall feeling better today. Consultants on case: Surgery, nephrology Exam (Progress Note) - Constitutional Vitals: Period Temp Pulse Resp BP Sys/Harrison Pulse Ox Last 24 Hr 97.0 F-98.6 F 70-94 16-20 125-155/61-72 93-100 Exam: GENERAL APPEARANCE: alert and oriented, pleasant, in no acute distress, morbidly obese, lying in bed comfortably. HEENT: normal. EYES: extraocular movement intact (EOMI), NECK/THYROID: neck supple, full range of motion, HEART: regular rate and rhythm, no murmurs, rubs, gallops. LUNGS: clear to auscultation bilaterally, no wheezes, rales, rhonchi. ABDOMEN: soft, nontender, nondistended, no organomegaly , bowel sounds present. EXTREMITIES: Right lower extremity over the leg, dressing present along with wound VAC. Please refer to surgery note NEUROLOGIC: alert and oriented, cranial nerves 2-12 grossly intact, Results - Labs CBC & BMP: 12/23/16 03:07 12/23/16 03:07 Lab Results: I have reviewed the past 24 hour labs Quality Measures - VTE Contraindication to Pharmacological VTE Prophylaxis: High Risk of Bleeding
--- NOTE | 2016-12-23 09:11 | General Surgery Progress Note ---
Assessment and Plan - Time spent with patient Time spent with patient: Less than 30 minutes (1) Hematoma of right lower extremity Problem details: Debridement by surgery yesterday. Status: Acute Assessment and plan: 12/19/2016. Right lower extremity hematoma, stable postop excisional debridement and evacuation. This injury was more extensive than it first appeared, creating a more extensive postop wound that will be a bit more difficult to manage. We will plan to keep her in the hospital with wound VAC in place over the weekend. We will plan to change the VAC on Thursday and reassess the wound, and consider making discharge plans if it can be managed with outpatient wound VAC at that point. Will await her culture results and adjust antibiotics as indicated. Medically she looks stable, but will continue to watch her H&H and monitor for bleeding. 12/22/2016. Hematoma with traumatic skin loss right lower extremity. She is stable postop. Unfortunately is difficult to tell how much viability remains of the flap. We will favor continuing to observe this for the next several days. We will plan to let her dialyzed and be transfused today, and keep her current wound care treatment regimen until . Will change the VAC again at that time, and make a decision as to whether or not she needs further debridement. 12/23/2016. Little change postop I&D with excisional debridement of right lower extremity hematoma. Her H&H is stable post transfusion. Her cultures now indicate 3 organisms, 1 of which is anaerobe (Clostridium perfringens). We will go ahead and start vancomycin in order to be certain we have good coverage. We will asked Dr. Archuleta to give us her opinion on how best to treat this. In addition, we will get an echocardiogram and a consult for [facility] to see if she might be eligible for HBO, given that this is a gas-forming bacteria. Current Visit: Yes Subjective Patient reports: Present: no new complaints Exam - Constitutional Vitals: Period Temp Pulse Resp BP Sys/Harrison Pulse Ox Last 24 Hr 97.0 F-98.6 F 70-94 16-20 125-155/61-72 93-100 General appearance: no acute distress, morbidly obese - Respiratory Respiratory exam: Absent: rales, wheezes - Extremities Exam Extremities exam: Present: other (Dressing in place; very little drainage in the wound VAC canister. Toes are warm and dry. Patient is complaining of little pain.) - Neurological Exam Neurological exam: Present: alert, oriented X3 Results - Labs CBC & BMP: 12/23/16 03:07 12/23/16 03:07 Lab Results: I have reviewed the past 24 hour labs (Labs noted; H&H is dated today at 10.1 and 31.5 post transfusion yesterday. Of note, on micro she is growing a clostridium perfringens. Her meropenem is not listed on sensitivity, although the gentamicin that we are using topically is.) Quality Measures - VTE Contraindication to Pharmacological VTE Prophylaxis: High Risk of Bleeding
--- NOTE | 2016-12-23 09:13 | Nephrology Progress Note ---
Nephrology - PN: Subj Interval history: The patient is resting comfortable. Continuing to follow directions from wound care team. Patient tolerated dialysis on yesterday. No other acute changes. Exam (PN)-Nephrology - Vital Signs Vital signs: Period Temp Pulse Resp BP Sys/Harrison Pulse Ox Last 24 Hr 97.0 F-98.6 F 70-94 16-20 125-155/61-72 93-100 - General Appearance General appearance: well-developed, well-nourished EENT: ATNC Neck: supple Respiratory: clear Cardiology: regular rate, regular rhythm Gastrointestinal: normoactive bowel sounds, no tenderness Integumentary: no rash Neurologic: alert and oriented x3 Musculoskeletal: no clubbing Psychiatric: mood/affect appropriate - Lab 12/23/16 03:07 12/23/16 03:07 Most recent lab results Calcium 8.2 MG/DL (8.5-10.1) L 12/23/16 03:07 Phosphorus 5.4 MG/DL (2.5-4.9) H 12/21/16 02:25 Magnesium 2.5 MG/DL (1.8-2.4) H 12/21/16 02:26 Assessment and Plan (1) Anemia, chronic disease Status: Chronic Current Visit: Yes (2) Diabetes Status: Chronic Current Visit: Yes Qualifiers: Diabetes mellitus type: type 2 Diabetes mellitus complication status: with kidney complications Diabetes mellitus complication detail: with chronic kidney disease Diabetes mellitus watermelon harvesting supervisor insulin use: with watermelon harvesting supervisor use Chronic kidney disease stage: on chronic dialysis Qualified Code(s): E11.22 - Type 2 diabetes mellitus with diabetic chronic kidney disease; N18.6 - End stage renal disease; Z79.4 - [employer] (current) use of insulin; Z99.2 - Dependence on renal dialysis (3) End-stage renal disease on hemodialysis Problem details: HD today Status: Chronic Assessment and plan: Continue with scheduled hemodialysis. Current Visit: Yes (4) Morbid obesity Status: Chronic Current Visit: Yes Qualifiers: Obesity type: unspecified obesity type Qualified Code(s): E66.01 - Morbid ( severe) obesity due to excess calories
[2016-12-23] MEDS: INSULIN GLARGINE 100 UNIT/ML SUBCUT SCH ×2 (09:26→16:09)
[2016-12-23] MEDS ORDERED: VANCOMYCIN INJ 2,000 MG in SODIUM CHLORIDE 0.9% 500 ML IV ONE (11:00)
[2016-12-23] MEDS: GENTAMICIN 0.1% OINT 15 GM TUBE TOP SCH ×2 (14:38→21:05)
[2016-12-24] MEDS: ALBUTEROL/IPRATROPIUM 3 ML NEB RESP TX SCH ×4 (01:05→18:57)
[2016-12-24] MEDS: SODIUM CHLORIDE 0.9% 250 ML IV SCH ×2 (03:38→21:37)
[2016-12-24] MEDS: INSULIN REGULAR 100 UNIT/ML SUBCUT SCH ×4 (08:12→21:38)
[2016-12-24] MEDS: MEROPENEM 500 MG in SODIUM CHLORIDE 0.9% 100 ML IV SCH (08:15)
--- NOTE | 2016-12-24 09:03 | Internal Med Progress Note ---
Assessment and Plan (1) Hematoma of right lower extremity Status: Acute Assessment and plan: Status post wound debridement on wound VAC, wound care as per the surgery recommendations. As per ID recommendation, start clindamycin 600 g IV every 8 hours; DAY 1 today Discontinue vancomycin and meropenem * End-stage renal disease on hemodialysis, 3 times a week * Hypertension, continue anti-hypertensives * Diabetes continue insulin. * Dyslipidemia, continue Pravachol Current Visit: Yes (2) Morbid obesity Status: Chronic Current Visit: Yes Qualifiers: Obesity type: unspecified obesity type Qualified Code(s): E66.01 - Morbid ( severe) obesity due to excess calories (3) Anemia, chronic disease Status: Chronic Assessment and plan: H&H is stable today, 10.1/31.5. Current Visit: Yes (4) Diabetes Status: Chronic Assessment and plan: Continue hemodialysis, 3 times a week continue sliding scale insulin as per protocol, En Current Visit: Yes Qualifiers: Diabetes mellitus type: type 2 Diabetes mellitus complication status: with kidney complications Diabetes mellitus complication detail: with chronic kidney disease Diabetes mellitus snf insulin use: with watermaster use Chronic kidney disease stage: on chronic dialysis Qualified Code(s): E11.22 - Type 2 diabetes mellitus with diabetic chronic kidney disease; N18.6 - End stage renal disease; Z79.4 - supervisor intermediates (current) use of insulin; Z99.2 - Dependence on renal dialysis (5) End-stage renal disease on hemodialysis Problem details: HD today Status: Chronic Current Visit: Yes Internal Medicine - PN: Subj Interval history: PCP: Dr. Marina Patient seen and examined on the third floor, accompanied by the at the bedside. No overnight events reported by the nurse or given history by the patient. No fever, nausea, vomiting, shortness of breath, chest pains, Patient had dialysis today Has lower extremity hematoma, on wound vac. Having daily evaluation of the wound by surgery.possible need of further wound debridement, Consultants on case: Surgery, nephrology, ID Exam (Progress Note) - Constitutional Vitals: Period Temp Pulse Resp BP Sys/Harrison Pulse Ox Last 24 Hr 97.1 F-97.6 F 69-92 12-20 133-166/65-72 95-100 Exam: GENERAL APPEARANCE: alert and oriented, pleasant, in no acute distress, morbidly obese, lying in bed comfortably. HEENT: normal. EYES: extraocular movement intact (EOMI), NECK/THYROID: neck supple, full range of motion, HEART: regular rate and rhythm, no murmurs, rubs, gallops. LUNGS: clear to auscultation bilaterally, no wheezes, rales, rhonchi. ABDOMEN: soft, nontender, nondistended, no organomegaly , bowel sounds present. EXTREMITIES: Right lower extremity over the leg, dressing present along with wound VAC. NEUROLOGIC: alert and oriented, cranial nerves 2-12 grossly intact, Results - Labs CBC & BMP: 12/23/16 03:07 12/23/16 03:07 Quality Measures - VTE Contraindication to Pharmacological VTE Prophylaxis: High Risk of Bleeding
--- NOTE | 2016-12-24 09:12 | Event Note ---
Ms. obvious for dialysis today. Based on her most recent culture results, we are considering changing her wound care protocol but will wait until Dr. Archuleta has had a chance to see the patient. At that point, feel sure that she would like to look at her wound, and when she removed the wound VAC today, will plan to assess the wound as well and will make a formal note with modified wound orders at that time.
[2016-12-24] MEDS: INSULIN GLARGINE 100 UNIT/ML SUBCUT SCH ×2 (09:23→16:20)
[2016-12-24] MEDS: GLIMEPIRIDE 4 MG TABLET PO SCH (09:23)
--- NOTE | 2016-12-24 11:32 | Infectious Disease Consult ---
Assessment and Plan (1) Hematoma of right lower extremity Problem details: Debridement by surgery yesterday. Status: Acute Assessment and plan: This hematoma got infected with multiple organisms including an anaerobe Clostridium perfringens. Recommendations: 1. Discontinue vancomycin and meropenem 2. Start clindamycin 600 g IV every 8 hours; this will cover the 3 organisms isolated 3. Bacid 2 tablets twice a day 4. Aggressive wound care; discussed with Dr. Lechuga and he may take the patient for further debridement. Patient also being considered for HBO therapy. Thank you very much for the consult. Will follow. Current Visit: Yes (2) Hyperlipidemia Status: Acute Current Visit: Yes (3) Diabetes Status: Chronic Current Visit: Yes Qualifiers: Diabetes mellitus type: type 2 Diabetes mellitus complication status: with kidney complications Diabetes mellitus complication detail: with chronic kidney disease Diabetes mellitus superintendent marine oil terminal insulin use: with superintendent marine oil terminal use Chronic kidney disease stage: on chronic dialysis Qualified Code(s): E11.22 - Type 2 diabetes mellitus with diabetic chronic kidney disease; N18.6 - End stage renal disease; Z79.4 - MCC (current) use of insulin; Z99.2 - Dependence on renal dialysis (4) End-stage renal disease on hemodialysis Problem details: HD today Status: Chronic Current Visit: Yes (5) Morbid obesity Status: Chronic Current Visit: Yes Qualifiers: Obesity type: unspecified obesity type Qualified Code(s): E66.01 - Morbid ( severe) obesity due to excess calories History of Present Illness Chief complaint: Infection to right leg History of present illness: Ms. Moreau is a 76 year old female who has multiple comorbid including end-stage renal disease on hemodialysis for the past 5 years. She has been doing well over the past few years not requiring hospitalization. She is well until about a week and half ago when her 3-year-old grandson accidentally kicked her on her right asher. She developed a large swelling to the area and it spontaneously opened during dialysis about a week ago and so she was sent to the hospital. She has not had any fever or other constitutional symptoms. I&D was done by Dr. Lechuga and it looked like it was all hematoma however cultures came up positive for several organisms including Clostridium perfringens. I am asked advice on antibiotic therapy. Home Medications Medication Instructions Recorded Confirmed Type Aspirin [Ecotrin] 81 mg PO DAILY 12/17/16 12/17/16 History Cinacalcet [Sensipar] 30 mg PO DAILY 12/17/16 12/17/16 History Ciprofloxacin Tab [Cipro Tab] 250 mg PO DAILY 12/17/16 12/17/16 History Gabapentin [Gabapentin] 100 mg PO TID 12/17/16 12/17/16 History Glimepiride [Amaryl] 6 mg PO DAILY W/BREAKFAST 12/17/16 12/17/16 History Metoclopramide HCl 5 mg PO DAILY 12/17/16 12/17/16 History Midodrine HCl 5 mg PO DAILY 12/17/16 12/17/16 History Pravastatin Sodium 80 mg PO DAILY 12/17/16 12/17/16 History Sertraline [Zoloft] 50 mg PO DAILY 12/17/16 12/17/16 History Sevelamer Carbonate Tab [Renvela 800 mg PO TID W/MEALS 12/17/16 12/17/16 History Tab] Allergies Allergy/AdvReac Type Severity Reaction Status Date / Time Penicillins Allergy Severe UNCONSCIOUS Verified 04/12/15 08:23 12 point system: reviewed and no additional remarkable complaints except as stated (Per HPI) Medical,Surgical,& Family Hx - Medical History Cardio: History of: Hypertension (no medications) Neurology: History of: Cerebrovascular Accident (15+ years-no residual), Peripheral Neuropathy No history of: Seizures HEENT: History of: Eye Problem (glasses), Dental Problems (dentures) Endocrine: History of: Diabetes Mellitus (NIDDM) Respiratory: History of: Obstructive Sleep Apnea (no Cpap) Renal: History of: Dialysis, Renal Problems (polycystic kidneys) - Surgical History Cardiac Surgeries: Sugical HX of: Cardiac Catheterization (stents x2), Vascular Access Devices (left arm graft) HEENT Surgeries: Surgical HX of: Eye Surgery (cataracts-bilateral) Abdominal Surgeries: Surgical HX of: Cholecystectomy, Hernia Repair Reproductive Surgeries: Surgical HX of;: Hysterectomy Orthopedic Surgeries: Surgical HX of;: Orthopedic Surgery - Family History Family History: Reports;: Family Cancer (brothers-kidney), Family Diabetes ( mother), Family Hypertension (parents), Family Stroke (parents) - Social History Smoking Status: Never smoker Frequency of Alcohol Use: None Type of Drug Use: None Infectious Disease Exam H&P - Constitutional Vitals: Vital Signs Temp Pulse Resp BP Pulse Ox 97.6 F 85 12 153/71 99 07/05/17 06:30 12/24/16 07:18 12/24/16 07:18 12/24/16 06:30 12/24/16 07:18 Intake and Output 12/23/16 12/24/16 12/24/16 23:59 07:59 15:59 Intake Total 440 / 440 120 / 120 Output Total 0 / 0 Balance 440 / 440 120 / 120 Intake: IV 200 / 200 Merrem 500 mg In Ns 100 200 / 200 ml @ 100 mls/hr IV Q12H IBIS Rx#:[id number] Oral 240 / 240 120 / 120 Output: Urine 0 / 0 Other: Voiding Method Dialysis Patient # Bowel Movements 0 Weight 133.538 kg Patient Weight 12/24/16 23:59 Weight 133.538 kg Exam: General: Patient relatively comfortable, was getting dialysis HEENT: Mucous membranes pink and moist, anicteric acyanotic, JAMIR, no oropharyngeal exudates Neck: Supple, no thyroid gland enlargement, no lymphadenopathy Respiratory system: Breath sounds vesicular, no crepitations or wheezes Cardiovascular: Normal S1 and S2, no murmurs appreciated Abdomen: Extremely distended, normal bowel sounds, soft nontender throughout, possible mass in right flank, may be her polycystic kidney Genitourinary: No suprapubic pain or bladder distention Extremities: no edema Skin: No rash Reports - Labs CBC & BMP: 12/23/16 03:07 12/23/16 03:07 Labs: Laboratory Results - last 24 hr 12/23/16 12/23/16 12/24/16 15:54 21:03 07:30 POC Glucose 84 182 H 65 L - Diagnostic Findings Procedure: Chest x-ray: report reviewed by me (No consolidation)
--- NOTE | 2016-12-24 12:58 | Dialysis Note ---
Dialysis Note - Dialysis Note Ms. Levy is seen during her hemodialysis. She is tolerating dialysis well. Will continue to support with dialysis as she undergoes wound care to her right asher.
[2016-12-24] MEDS: SEVELAMER CARBONATE 800 MG TABLET PO SCH ×3 (13:18→16:21)
[2016-12-24] MEDS: GENTAMICIN 0.1% OINT 15 GM TUBE TOP SCH ×3 (13:18→21:38)
[2016-12-24] MEDS: GABAPENTIN 100 MG CAPSULE PO SCH ×3 (13:18→21:43)
[2016-12-24] MEDS: PANTOPRAZOLE 40 MG TABLET PO SCH (13:33)
[2016-12-24] MEDS: DOCUSATE SODIUM 100 MG CAPSULE PO SCH ×2 (13:33→21:43)
[2016-12-24] MEDS: ASPIRIN EC 81 MG TABLET PO SCH (13:33)
[2016-12-24] MEDS: CINACALCET 30 MG TABLET PO SCH (13:33)
[2016-12-24] MEDS: MIDODRINE 5 MG TABLET PO SCH (13:33)
[2016-12-24] MEDS: SERTRALINE 50 MG TABLET PO SCH (13:33)
[2016-12-24] MEDS: METOCLOPRAMIDE 5 MG TABLET PO SCH (13:34)
[2016-12-24] MEDS: CLINDAMYCIN INJ 600 MG in PREMIX 1 EACH IV SCH ×2 (13:34→21:43)
[2016-12-24] MEDS: PRAVASTATIN 40 MG TABLET PO SCH (13:34)
[2016-12-24] MEDS ORDERED: VANCOMYCIN INJ 1,000 MG in SODIUM CHLORIDE 0.9% 250 ML IV PRN (14:00)
[2016-12-24] MEDS ORDERED: VANCOMYCIN INJ 1,000 MG in SODIUM CHLORIDE 0.9% 250 ML IV ONE (14:00)
--- NOTE | 2016-12-24 15:43 | General Surgery Progress Note ---
Assessment and Plan (1) Hematoma of right lower extremity Status: Acute Assessment and plan: 12/19/2016. Right lower extremity hematoma, stable postop excisional debridement and evacuation. This injury was more extensive than it first appeared, creating a more extensive postop wound that will be a bit more difficult to manage. We will plan to keep her in the hospital with wound VAC in place over the weekend. We will plan to change the VAC on Thursday and reassess the wound, and consider making discharge plans if it can be managed with outpatient wound VAC at that point. Will await her culture results and adjust antibiotics as indicated. Medically she looks stable, but will continue to watch her H&H and monitor for bleeding. 12/22/2016. Hematoma with traumatic skin loss right lower extremity. She is stable postop. Unfortunately is difficult to tell how much viability remains of the flap. We will favor continuing to observe this for the next several days. We will plan to let her dialyzed and be transfused today, and keep her current wound care treatment regimen until . Will change the VAC again at that time, and make a decision as to whether or not she needs further debridement. 12/23/2016. Little change postop I&D with excisional debridement of right lower extremity hematoma. Her H&H is stable post transfusion. Her cultures now indicate 3 organisms, 1 of which is anaerobe (Clostridium perfringens). We will go ahead and start vancomycin in order to be certain we have good coverage. We will asked Dr. Archuleta to give us her opinion on how best to treat this. In addition, we will get an echocardiogram and a consult for [facility] to see if she might be eligible for HBO, given that this is a gas-forming bacteria. 12/24/16 Stable skin changes post op. We appreciate Dr Archuleta's help. Dr Lechuga will be in early tomorrow to decide whether or not additional debridement of the skin would benefit her at this point. We'll hold her NPO should surgery be indicated, so that we can do the surgery tomorrow between dialysis days. This was discussed/explained to the patient and her . Current Visit: Yes Exam - Constitutional Vitals: Period Temp Pulse Resp BP Sys/Harrison Pulse Ox Last 24 Hr 97.3 F-97.6 F 69-88 12-20 133-166/66-72 95-100 - Extremities Exam Extremities exam: Present: other (RLE with no progressive skin loss. Some mild slough superficially. The ecchymosis is stable. No increased bogginess of the tissues.) Results - Labs CBC & BMP: 12/23/16 03:07 12/23/16 03:07 Quality Measures - VTE Contraindication to Pharmacological VTE Prophylaxis: High Risk of Bleeding
--- NOTE | 2016-12-24 19:42 | ECHO Report ---
Maile Moreau Exam Date: 12/23/2016 11:30 Referring Physician: Technologist: Letitia Herrera RDCS Age: 76 Ht (in): 68 Wt (lb): 300 Gender: F Exam Location: [facility] Echo Indications: Hematoma right lower extremity, Post Op excisional debridement, for HBO BP: 151 / 66 HR: 78 Rhythm: Sinus Technical Quality: IMPRESSIONS Normal left ventricular cavity size. Mild concentric left ventricular hypertrophy, with normal systolic function. Left ventricular ejection fraction is estimated at 60 %. Grade 2 diastolic dsfunction. Mildly increased right ventricular size, with normal systolic function. Moderate pulmonary hypertension. Biatrial enlargement. Thickened mitral valve. Mitral annular calcification. Mild mitral valve regurgitation. Aortic valve sclerosis without stenosis or regurgitation. Mild tricuspid and pulmonic valve insufficiency. MEASUREMENTS (Male / Female) Normal Values 2D ECHO LV Diastolic Diameter PLAX 4.4 cm 4.2 - 5.9 / 3.9 - 5.3 cm LV Systolic Diameter PLAX 2.4 cm LV Fractional Shortening PLAX 45.4 % IVS Diastolic Thickness 1.1 cm 0.6 - 1.0 / 0.6 - 0.9 cm LVPW Diastolic Thickness 1.1 cm 0.6 - 1.0 / 0.6 - 0.9 cm RV Internal Dim ED PLAX 3.2 cm Aortic Root Diameter 3.3 cm LA Systolic Diameter LX 4.2 cm 3.0 - 4.0 / 2.7 - 3.8 cm DOPPLER TR Peak Velocity 368.0 cm/s TR Peak Gradient 54.2 mmHg FINDINGS Left Ventricle Normal left ventricular cavity size. Mild concentric left ventricular hypertrophy, with normal systolic function. Left ventricular ejection fraction is estimated at 60 %. Grade 2 diastolic dsfunction. Right Ventricle Mildly increased right ventricular size, with normal systolic function. Right Atrium The right atrium is mildly enlarged. Left Atrium The left atrium is mildly enlarged. Mitral Valve Thickened mitral valve. Mitral annular calcification. Mild mitral valve regurgitation. No stenosis. Diastolic gradient peak 8, mean 4 mmHg. Aortic Valve Aortic valve sclerosis without stenosis or regurgitation. Tricuspid Valve Morphologically normal tricuspid valve. Mild tricuspid valve regurgitation. Tricuspid regurgitation velocities suggest a PAP of 64 mmHg. Pulmonic Valve Morphologically normal pulmonic valve. Mild pulmonary valve regurgitation. Pericardium Normal pericardium without effusion. Aorta Normal ascending aorta dimension. Tomi Huerta (Electronically Signed) Final Date: 24 December 2016 19:41
[2016-12-24] MEDS: LACTOBACILLUS ACIDOPHILUS/BULGARICUS CAPLET PO SCH (21:43)
[2016-12-25] MEDS: ALBUTEROL/IPRATROPIUM 3 ML NEB RESP TX SCH ×4 (00:04→19:05)
[2016-12-25] MEDS: SODIUM CHLORIDE 0.9% 250 ML IV SCH ×2 (03:53→17:12)
[2016-12-25] MEDS: CLINDAMYCIN INJ 600 MG in PREMIX 1 EACH IV SCH ×3 (03:54→21:03)
[2016-12-25] MEDS: DEXTROSE 50% 25 GM/50 ML VIAL IV PRN (07:26)
[2016-12-25 08:08] LABS: Basophils % 0.5 % (0.0-0.8); Eosinophils # 0.2 10*3/uL (0.0-0.87); Eosinophils % 1.9 % (0.00-10.9); Hemoglobin 10.1 GM/DL (12.0-16.0); Immature Granulocytes % 1.1 %; Immature Granulocytes Absolute 0.09 #; Lymphocytes % 12.6 % (21.3-54.2); Mean Corpuscular HGB Conc 32.6 GM/DL (32-36); Mean Corpuscular Hemoglobin 32 PG (27-34); Mean Corpuscular Volume 98.7 FL (87-102); Mean Platelet Volume 9.8 FL (9.6-12.0); Monocytes # 0.8 10*3/uL (0.11-0.8); Monocytes % 9.7 % (1.7-12.7); Neutrophils # 5.9 10*3/uL (1.4-7.4); Neutrophils % 74.2 % (38.7-73.9); Platelet Count 189 T/CUMM (130-400); Red Blood Count 3.14 MC/CUMM (3.8-5.5); Red Cell Distribution Width 15.7 % (9.3-17.3)
[2016-12-25] MEDS: INSULIN REGULAR 100 UNIT/ML SUBCUT SCH ×4 (08:16→21:05)
[2016-12-25] MEDS: INSULIN GLARGINE 100 UNIT/ML SUBCUT SCH ×2 (08:17→19:22)
[2016-12-25] MEDS: SEVELAMER CARBONATE 800 MG TABLET PO SCH ×3 (08:17→17:10)
[2016-12-25] MEDS: GLIMEPIRIDE 4 MG TABLET PO SCH (08:17)
[2016-12-25] MEDS ORDERED: BUPIVACAINE MPF 0.25% /EPI 30 ML VIAL ONE (08:42)
[2016-12-25] MEDS ORDERED: LIDOCAINE 1%/EPI INJ 20 ML VIAL ONE (08:42)
[2016-12-25 09:00] LABS: Alanine Aminotransferase 15 U/L (13-56); Albumin 2.4 G/DL (3.4-5.0); Alkaline Phosphatase 120 U/L (45-117); Aspartate Amino Transferase 11 U/L (0-37); Bilirubin,Total < 0.39 MG/DL (0.2-1.0); Blood Urea Nitrogen 37 MG/DL (7-18); Calcium 8.1 MG/DL (8.5-10.1); Glucose 103 MG/DL (74-106); Potassium 4.3 MMOL/L (3.5-5.1); Sodium 136 MMOL/L (136-145); Total Protein 5.6 G/DL (6.4-8.3)
--- NOTE | 2016-12-25 09:24 | Physician Query Form ---
CLICK EDIT DOCUMENT TO SELECT QUERY ANSWER --> OK --> SIGN Letha Ball RN, CCDS Certified Clinical Book Editor W) [phone] (f) [phone] [email or web address] PROVIDERS: Make your selection(s) from the choices in EACH section by typing an "x" and enter comments in the comment section. Please use your independent medical judgment in providing your response. This request does not imply that any particular answer is desired or expected. CLINICAL INDICATORS: (Providers should not edit this section) The medical record indicates that the patient was admitted with a Hematoma of the right lower extremity, HH of 10.4/33.3 that would later drop to 8.7/27.8 and the patient had an order for one unit of blood. Based on the above, could you clarify which of the following conditions you are evaluating, treating, and/or monitoring? ( ) Blood loss anemia ( ) acute ( ) chronic ( ) acute on chronic ( ) Acute blood loss anemia on baseline chronic anemia ( ) Acute blood loss anemia as a complication of a procedure ( ) Iron deficiency anemia not associated with blood loss ( ) Dilutional anemia due to IV fluids ( ) Anemia due to chemotherapy ( ) Anemia due to neoplastic disease ( x) Anemia due to chronic kidney disease ( ) Pernicious anemia ( ) Aplastic anemia ( ) Hemolytic anemia ( ) immune ( ) non-immune - please specify cause: ( ) Anemia due to other condition, please specify: ( ) Clinically unable to determine COMMENTS: PLEASE ALSO DOCUMENT RESPONSE IN PROGRESS NOTES AND/OR DISCHARGE SUMMARY Use of terms such as suspected, likely, or probable (associated with a specific diagnosis that is being evaluated, monitored, or treated as if it exists) are acceptable and can be restated in the discharge summary if not ruled out. MTDD
--- NOTE | 2016-12-25 09:32 | Internal Med Progress Note ---
Assessment and Plan (1) Hematoma of right lower extremity Status: Acute Assessment and plan: wound debridement repeat today, wound care as per the surgery recommendations. On clindamycin day 2 today, case management/licensed clinical social worker referral for home wound care, for future discharge plan * End-stage renal disease on hemodialysis, 3 times a week * Hypertension, continue anti-hypertensives * Diabetes continue insulin. * Dyslipidemia, continue Pravachol Current Visit: Yes (2) Morbid obesity Status: Chronic Current Visit: Yes Qualifiers: Obesity type: unspecified obesity type Qualified Code(s): E66.01 - Morbid ( severe) obesity due to excess calories (3) Anemia, chronic disease Status: Chronic Assessment and plan: H&H is stable today, 10./31.5. Current Visit: Yes (4) Diabetes Status: Chronic Assessment and plan: Continue hemodialysis, 3 times a week continue sliding scale insulin as per protocol, En Current Visit: Yes Qualifiers: Diabetes mellitus type: type 2 Diabetes mellitus complication status: with kidney complications Diabetes mellitus complication detail: with chronic kidney disease Diabetes mellitus long-term insulin use: with long-term use Chronic kidney disease stage: on chronic dialysis Qualified Code(s): E11.22 - Type 2 diabetes mellitus with diabetic chronic kidney disease; N18.6 - End stage renal disease; Z79.4 - [facility] (current) use of insulin; Z99.2 - Dependence on renal dialysis (5) End-stage renal disease on hemodialysis Problem details: HD today Status: Chronic Current Visit: Yes Internal Medicine - PN: Subj Interval history: PCP: Dr. Marina Patient seen and examined on the third floor, accompanied by the at the bedside. No overnight events reported by the nurse or given history by the patient. Nothing by mouth today, having surgery for the wound this morning No fever, nausea, vomiting, shortness of breath, chest pains, Consultants on case: Surgery, nephrology, ID Exam (Progress Note) - Constitutional Vitals: Period Temp Pulse Resp BP Sys/Harrison Pulse Ox Last 24 Hr 97.3 F-97.8 F 79-96 16-22 119-144/56-89 93-100 Exam: GENERAL APPEARANCE: alert and oriented, pleasant, in no acute distress, morbidly obese, lying in bed comfortably. HEENT: normal. EYES: extraocular movement intact (EOMI), NECK/THYROID: neck supple, full range of motion, HEART: regular rate and rhythm, no murmurs, rubs, gallops. LUNGS: clear to auscultation bilaterally, no wheezes, rales, rhonchi. ABDOMEN: soft, nontender, nondistended, no organomegaly , bowel sounds present. EXTREMITIES: Right lower extremity over the leg, dressing present NEUROLOGIC: alert and oriented, cranial nerves 2-12 grossly intact, Results - Labs CBC & BMP: 12/25/16 07:51 12/25/16 07:51 Lab Results: I have reviewed the past 24 hour labs Quality Measures - VTE Contraindication to Pharmacological VTE Prophylaxis: High Risk of Bleeding
[2016-12-25] MEDS ORDERED: DEXTROSE 50% 25 GM/50 ML VIAL IV ONE ×2 (11:12→11:22)
[2016-12-25] MEDS ORDERED: BUPIVACAINE 0.25% 50 ML VIAL ONE (11:27)
[2016-12-25] MEDS ORDERED: PROPOFOL 200 MG/20 ML VIAL IV ONE (11:45)
[2016-12-25] MEDS ORDERED: LIDOCAINE 2% 5 ML VIAL ONE (11:45)
[2016-12-25] MEDS ORDERED: PHENYLEPHRINE 1 MG/10 ML SYRINGE IV ONE (11:45)
[2016-12-25] MEDS ORDERED: ONDANSETRON 4 MG/2 ML VIAL ONE (11:45)
[2016-12-25] MEDS ORDERED: ETOMIDATE 20 MG/10 ML VIAL IV ONE (11:45)
[2016-12-25] MEDS ORDERED: SILVER SULFADIAZINE 1% CREAM 400 GM JAR TOP ONE (12:17)
[2016-12-25] MEDS ORDERED: ONDANSETRON 4 MG/2 ML VIAL IV PRN (12:32)
[2016-12-25] MEDS ORDERED: oxyCODONE/ACETAMINOPHEN 5-325 MG TABLET PO PRN (12:32)
--- NOTE | 2016-12-25 12:32 | Operative Note ---
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 Postop diagnosis: Failed flaps of the right anterior leg wound secondary to a traumatic hematoma Procedure: Excisional debridement of necrotic flaps of the anterior leg and the deep subcutaneous tissue. Surgeon Dr. Lechuga Chuck Tender Kiaan Mckeon, LIFE SCIENCE RESEARCH ASSISTANT ACNP Anesthesia was general Brief history. 76-year-old white female who presented with a traumatic hematoma of the right leg. About a week ago we opened this wound up and evacuate the hematoma and then I attempted to save the flaps of skin that was involved with a hematoma but sutured them down and placed a wound VAC on surface. Were hoping it would save some skin and have less today. Over time though in a couple VAC changes it was clear that these flaps had failed completely. We next elected to go ahead and plan to bring her surgery at this time to debride these areas so we can start a fresh wound care protocol. Procedure: With patient in the supine position prepped and draped in a sterile fashion timeout and antibiotics completed approaches area of the right leg. The pre- during the debridement demarcated necrotic area on the anterior leg measured 15 x 16 cm. At that point we removed all the old sutures of the flaps O lifted these up and then I began to debride with the scissors that necrotic skin at the edges to where there was fresh skin all the way around medially and then laterally to get this area open as well as we can get it. We washed irrigated with saline solution and I debrided the subcutaneous tissue and fascia over the surface of this wound bed or get a good clean bed at this time and take some tissue for cultures. Once I had debrided all of this tissue that I felt we could get there was still a couple of small questionable areas. [place] to be nice to leave those because they had done well previously see if they will still recover. At this point we now have a post debridement wound that 16.5 x 17.2 x 0.8 cm. We then dressed this with Mepitel and Silvadene along with a bulky dressing took the patient to recovery room in stable and satisfactory condition. Estimated blood loss 20 cc Sponge count correct 2 Drains none Complications none Condition stable satisfactory Anesthesia: BHARGAV Surgeon / Physician: Maximiliano Lechuga Chuck Tender: Kiana Mckeon Estimated blood loss: other (20 cc) Specimens: other (Tissue for pathology and cultures) Condition: stable Disposition: floor Results - Labs CBC & BMP: 12/25/16 07:51 12/25/16 07:51 Discharge Plan - Discharge Medications No Action Sevelamer Carbonate Tab [Renvela Tab] 800 mg PO TID W/MEALS Cinacalcet [Sensipar] 30 mg PO DAILY Midodrine HCl 5 mg PO DAILY Aspirin [Ecotrin] 81 mg PO DAILY Glimepiride [Amaryl] 6 mg PO DAILY W/BREAKFAST Sertraline [Zoloft] 50 mg PO DAILY Ciprofloxacin Tab [Cipro Tab] 250 mg PO DAILY Pravastatin Sodium 80 mg PO DAILY Metoclopramide HCl 5 mg PO DAILY Gabapentin [Gabapentin] 100 mg PO TID - Follow Up or Referral - Forms/Instructions
--- NOTE | 2016-12-25 12:42 | Anesthesia Post-Op ---
Anesthesia Post OP - Post Ansesthetic Evaluation Patient seen in post op: Yes Resp: within normal limits CV: within normal limits Mental: within normal limits Temp: within normal limits [id number]: within normal limits Nausea and Vomiting: within normal limits Pain: within normal limits
[2016-12-25] MEDS ORDERED: MIDAZOLAM 2 MG/2 ML VIAL ONE (12:46)
[2016-12-25] MEDS ORDERED: SEVOFLURANE 1 UNIT/15 MINUTE INH ONE (12:46)
[2016-12-25] MEDS: GENTAMICIN 0.1% OINT 15 GM TUBE TOP SCH ×3 (14:01→21:04)
[2016-12-25] MEDS: GABAPENTIN 100 MG CAPSULE PO SCH ×3 (14:01→21:05)
[2016-12-25] MEDS: LACTOBACILLUS ACIDOPHILUS/BULGARICUS CAPLET PO SCH ×2 (14:13→21:03)
[2016-12-25] MEDS: ASPIRIN EC 81 MG TABLET PO SCH (14:13)
[2016-12-25] MEDS: CINACALCET 30 MG TABLET PO SCH (14:13)
[2016-12-25] MEDS: METOCLOPRAMIDE 5 MG TABLET PO SCH (14:13)
[2016-12-25] MEDS: PRAVASTATIN 40 MG TABLET PO SCH (14:13)
[2016-12-25] MEDS: DOCUSATE SODIUM 100 MG CAPSULE PO SCH ×2 (14:13→21:04)
[2016-12-25] MEDS: SERTRALINE 50 MG TABLET PO SCH (14:13)
[2016-12-25] MEDS: PANTOPRAZOLE 40 MG TABLET PO SCH (14:14)
[2016-12-25] MEDS: MIDODRINE 5 MG TABLET PO SCH (14:14)
--- NOTE | 2016-12-25 15:29 | Nephrology Progress Note ---
Nephrology - PN: Subj Interval history: The patient is resting she is status post wound debridement of necrotic flap. She voices no complaints. Exam (PN)-Nephrology - Vital Signs Vital signs: Period Temp Pulse Resp BP Sys/Harrison Pulse Ox Last 24 Hr 97 F-97.8 F 66-96 16-22 114-153/54-89 93-100 - General Appearance General appearance: well-developed, well-nourished Neck: supple Respiratory: clear Cardiology: no edema, regular rate, regular rhythm Gastrointestinal: normoactive bowel sounds, no tenderness Neurologic: alert and oriented x3 Psychiatric: mood/affect appropriate - Lab 12/25/16 07:51 12/25/16 07:51 Most recent lab results Calcium 8.1 MG/DL (8.5-10.1) L 12/25/16 07:51 Phosphorus 5.4 MG/DL (2.5-4.9) H 12/21/16 02:25 Magnesium 2.5 MG/DL (1.8-2.4) H 12/21/16 02:26 Assessment and Plan (1) Anemia, chronic disease Status: Chronic Current Visit: Yes (2) Diabetes Status: Chronic Current Visit: Yes Qualifiers: Diabetes mellitus type: type 2 Diabetes mellitus complication status: with kidney complications Diabetes mellitus complication detail: with chronic kidney disease Diabetes mellitus jail insulin use: with high school band director use Chronic kidney disease stage: on chronic dialysis Qualified Code(s): E11.22 - Type 2 diabetes mellitus with diabetic chronic kidney disease; N18.6 - End stage renal disease; Z79.4 - box lining machine feeder (current) use of insulin; Z99.2 - Dependence on renal dialysis (3) End-stage renal disease on hemodialysis Problem details: HD today Status: Chronic Assessment and plan: Continue with scheduled hemodialysis. Current Visit: Yes (4) Morbid obesity Status: Chronic Current Visit: Yes Qualifiers: Obesity type: unspecified obesity type Qualified Code(s): E66.01 - Morbid ( severe) obesity due to excess calories
--- NOTE | 2016-12-25 15:59 | Infectious Disease Progress ---
Assessment and Plan (1) Hematoma of right lower extremity Status: Acute Assessment and plan: This hematoma got infected with multiple organisms including an anaerobe Clostridium perfringens. She had flap surgery done after drainage of the hematoma but the flap has failed and the patient was awaiting surgery today. Recommendations: Continue clindamycin. She will require long-term wound care after her surgery today. Current Visit: Yes (2) Hyperlipidemia Status: Acute Current Visit: Yes (3) Diabetes Status: Chronic Current Visit: Yes Qualifiers: Diabetes mellitus type: type 2 Diabetes mellitus complication status: with kidney complications Diabetes mellitus complication detail: with chronic kidney disease Diabetes mellitus long term care pharmacist insulin use: with long term care pharmacist use Chronic kidney disease stage: on chronic dialysis Qualified Code(s): E11.22 - Type 2 diabetes mellitus with diabetic chronic kidney disease; N18.6 - End stage renal disease; Z79.4 - retirement (current) use of insulin; Z99.2 - Dependence on renal dialysis (4) End-stage renal disease on hemodialysis Problem details: HD today Status: Chronic Current Visit: Yes (5) Morbid obesity Status: Chronic Current Visit: Yes Qualifiers: Obesity type: unspecified obesity type Qualified Code(s): E66.01 - Morbid ( severe) obesity due to excess calories Infectious Disease - PN: Subj Interval history: Patient was seen earlier this morning, she had no specific complaints. Tolerating the clindamycin so far without any nausea vomiting or diarrhea. She says she is actually constipated since admission. No fever. Was to have surgery today. Infectious Disease Exam (PN) - Constitutional Vitals: Temp Pulse Resp BP Pulse Ox 97.0 F L 75 16 124/54 97 12/25/16 13:25 12/25/16 14:55 12/25/16 14:55 12/25/16 14:55 12/25/16 14:55 General appearance: no acute distress, morbidly obese Exam: General appearance: no acute distress - Eye Eye exam: Present: EOMI. no icterus Pupils: Present: JAMIR - ENT ENT exam: no oral exudates - Respiratory Respiratory exam: vesicular BS, no crepitations or wheezes - Cardiovascular Cardiovascular exam: regular rate and rhythm, no murmurs - GI/Abdominal GI/Abdominal exam: normal bowel sounds, soft, non-tender, no organomegaly or mass - Extremities Exam Extremities exam: Foot of right leg wound noted and there was quite a bruised area with the skin looking quite necrotic - Skin Skin exam: no rash Results - Labs CBC & BMP: 12/25/16 07:51 12/25/16 07:51 Lab Results: I have reviewed the past 24 hour labs Quality Measures - VTE Contraindication to Pharmacological VTE Prophylaxis: High Risk of Bleeding
[2016-12-26] MEDS: ALBUTEROL/IPRATROPIUM 3 ML NEB RESP TX SCH ×4 (00:33→19:42)
[2016-12-26] MEDS: CLINDAMYCIN INJ 600 MG in PREMIX 1 EACH IV SCH ×3 (04:03→20:35)
[2016-12-26 06:53] LABS: Basophils # 0.1 10*3/uL (0.0-0.2); Basophils % 0.4 % (0.0-0.8); Eosinophils % 0.1 % (0.00-10.9); Hematocrit 29.1 VOL% (35.7-47.0); Hemoglobin 9.3 GM/DL (12.0-16.0); Immature Granulocytes % 1.2 %; Immature Granulocytes Absolute 0.18 #; Lymphocytes # 0.7 10*3/uL (1.4-4.0); Lymphocytes % 4.2 % (21.3-54.2); Mean Corpuscular Hemoglobin 31 PG (27-34); Mean Corpuscular Volume 98.3 FL (87-102); Mean Platelet Volume 10.5 FL (9.6-12.0); Monocytes # 1.2 10*3/uL (0.11-0.8); Monocytes % 7.5 % (1.7-12.7); Neutrophils # 13.3 10*3/uL (1.4-7.4); Neutrophils % 86.6 % (38.7-73.9); Platelet Count 221 T/CUMM (130-400); Red Blood Count 2.96 MC/CUMM (3.8-5.5); Red Cell Distribution Width 15.1 % (9.3-17.3); White Blood Count 15.4 T/CUMM (4-12)
[2016-12-26] MEDS: SODIUM CHLORIDE 0.9% 250 ML IV SCH ×3 (06:58→23:12)
[2016-12-26 07:17] LABS: Band Neutrophils 4 % (0-10); Eosinophils 1 % (0-10); Lymphocytes 5 % (20-55); Segmented Neutrophils 88 % (50-85); Total Cells Counted 100
[2016-12-26 07:18] LABS: Albumin 2.3 G/DL (3.4-5.0); Anisocytosis 1+; Bilirubin,Total 0.4 MG/DL (0.2-1.0); Calcium 8.4 MG/DL (8.5-10.1); Hypochromasia 1+; Osmolality,Calculated 287.4 MOS/KG (273-304); Platelet Estimate Normal; Potassium 4.8 MMOL/L (3.5-5.1); Total Protein 5.6 G/DL (6.4-8.3)
--- NOTE | 2016-12-26 08:28 | Dialysis Note ---
Dialysis Note - Dialysis Note Ms. Levy is seen on hemodialysis. She is tolerating today's dialysis well. She is status post further debridement of her right asher wound. She will continue long-term wound care for this.
--- NOTE | 2016-12-26 09:28 | Internal Med Progress Note ---
Assessment and Plan (1) Hematoma of right lower extremity Status: Acute Assessment and plan: s/p wound debridement , wound care as per the surgery recommendations. On clindamycin day 3 today, case management/social media analyst referral for home wound care, for future discharge plan, possible discharge over weekend , if stable and cleared by SX, * End-stage renal disease on hemodialysis, 3 times a week * Hypertension, continue anti-hypertensives * Diabetes continue insulin. * Dyslipidemia, continue Pravachol Current Visit: Yes (2) Morbid obesity Status: Chronic Current Visit: Yes Qualifiers: Obesity type: unspecified obesity type Qualified Code(s): E66.01 - Morbid ( severe) obesity due to excess calories (3) Anemia, chronic disease Status: Chronic Current Visit: Yes (4) Diabetes Status: Chronic Current Visit: Yes Qualifiers: Diabetes mellitus type: type 2 Diabetes mellitus complication status: with kidney complications Diabetes mellitus complication detail: with chronic kidney disease Diabetes mellitus [facility] insulin use: with rat exterminator use Chronic kidney disease stage: on chronic dialysis Qualified Code(s): E11.22 - Type 2 diabetes mellitus with diabetic chronic kidney disease; N18.6 - End stage renal disease; Z79.4 - [facility] (current) use of insulin; Z99.2 - Dependence on renal dialysis (5) End-stage renal disease on hemodialysis Status: Chronic Current Visit: Yes Internal Medicine - PN: Subj Interval history: PCP: Dr. Marina Patient seen and examined at dialysis unit, undergoing hemodialysis, pt feeling sleepy more than usual today, had further wound debridement yesterday , No fever, nausea, vomiting, shortness of breath, chest pains, Consultants on case: Surgery, nephrology, ID Exam (Progress Note) - Constitutional Vitals: Period Temp Pulse Resp BP Sys/Harrison Pulse Ox Last 24 Hr 97 F-100.6 F 66-94 16-20 111-159/50-76 91-100 Exam: GENERAL APPEARANCE: alert and oriented, pleasant, in no acute distress, morbidly obese, HEENT: normal. EYES: extraocular movement intact (EOMI), NECK/THYROID: neck supple, full range of motion, HEART: regular rate and rhythm, no murmurs, rubs, gallops. LUNGS: clear to auscultation bilaterally, no wheezes, rales, rhonchi. ABDOMEN: soft, nontender, nondistended, no organomegaly , bowel sounds present. EXTREMITIES: Right lower extremity over the leg, dressing present NEUROLOGIC: alert and oriented, cranial nerves 2-12 grossly intact, Results - Labs CBC & BMP: 12/26/16 06:18 12/26/16 06:18 Lab Results: I have reviewed the past 24 hour labs Quality Measures - VTE Contraindication to Pharmacological VTE Prophylaxis: High Risk of Bleeding
--- NOTE | 2016-12-26 11:19 | Infectious Disease Progress ---
Assessment and Plan (1) Hematoma of right lower extremity Status: Acute Assessment and plan: This hematoma got infected with multiple organisms including an anaerobe Clostridium perfringens. She had flap surgery done after drainage of the hematoma but the flap has failed and she had debridement yesterday with a large wound now present. I am concerned about the fever last night and acute leukocytosis. Recommendations: Continue clindamycin but I would order blood cultures today which can be drawn at dialysis. Current Visit: Yes (2) Hyperlipidemia Status: Acute Current Visit: Yes (3) Diabetes Status: Chronic Current Visit: Yes Qualifiers: Diabetes mellitus type: type 2 Diabetes mellitus complication status: with kidney complications Diabetes mellitus complication detail: with chronic kidney disease Diabetes mellitus snf insulin use: with snf use Chronic kidney disease stage: on chronic dialysis Qualified Code(s): E11.22 - Type 2 diabetes mellitus with diabetic chronic kidney disease; N18.6 - End stage renal disease; Z79.4 - halfway (current) use of insulin; Z99.2 - Dependence on renal dialysis (4) End-stage renal disease on hemodialysis Problem details: HD today Status: Chronic Current Visit: Yes (5) Morbid obesity Status: Chronic Current Visit: Yes Qualifiers: Obesity type: unspecified obesity type Qualified Code(s): E66.01 - Morbid ( severe) obesity due to excess calories Infectious Disease - PN: Subj Interval history: Patient had surgery yesterday, debridement of the necrotic skin over her hematoma. She spiked fever last night 100.6. White count has jumped up today to 15. She had no specific complaints. Infectious Disease Exam (PN) - Constitutional Vitals: Temp Pulse Resp BP Pulse Ox 97.6 F 85 18 111/53 94 L 12/26/16 07:04 12/26/16 07:04 12/26/16 07:04 12/26/16 07:04 12/26/16 07:04 General appearance: no acute distress, morbidly obese Exam: General appearance: Was drowsy but arousable on dialysis - Eye Eye exam: Present: EOMI. no icterus Pupils: Present: JAMIR - ENT ENT exam: no oral exudates - Respiratory Respiratory exam: vesicular BS, no crepitations or wheezes - Cardiovascular Cardiovascular exam: regular rate and rhythm, no murmurs - GI/Abdominal GI/Abdominal exam: normal bowel sounds, soft, non-tender, no organomegaly or mass - Extremities Exam Extremities exam: right leg wound noted -there is a large area where the skin and subcutaneous tissues were debrided. No benedict pus. No surrounding erythema or induration. - Skin Skin exam: no rash Results - Labs CBC & BMP: 12/26/16 06:18 12/26/16 06:18 Lab Results: I have reviewed the past 24 hour labs (Acute leukocytosis; no blood cultures drawn on admission) Quality Measures - VTE Contraindication to Pharmacological VTE Prophylaxis: High Risk of Bleeding
--- NOTE | 2016-12-26 11:38 | General Surgery Progress Note ---
Assessment and Plan (1) Hematoma of right lower extremity Status: Acute Assessment and plan: 12/19/2016. Right lower extremity hematoma, stable postop excisional debridement and evacuation. This injury was more extensive than it first appeared, creating a more extensive postop wound that will be a bit more difficult to manage. We will plan to keep her in the hospital with wound VAC in place over the weekend. We will plan to change the VAC on Thursday and reassess the wound, and consider making discharge plans if it can be managed with outpatient wound VAC at that point. Will await her culture results and adjust antibiotics as indicated. Medically she looks stable, but will continue to watch her H&H and monitor for bleeding. 12/22/2016. Hematoma with traumatic skin loss right lower extremity. She is stable postop. Unfortunately is difficult to tell how much viability remains of the flap. We will favor continuing to observe this for the next several days. We will plan to let her dialyzed and be transfused today, and keep her current wound care treatment regimen until . Will change the VAC again at that time, and make a decision as to whether or not she needs further debridement. 12/23/2016. Little change postop I&D with excisional debridement of right lower extremity hematoma. Her H&H is stable post transfusion. Her cultures now indicate 3 organisms, 1 of which is anaerobe (Clostridium perfringens). We will go ahead and start vancomycin in order to be certain we have good coverage. We will asked Dr. Archuleta to give us her opinion on how best to treat this. In addition, we will get an echocardiogram and a consult for [facility] to see if she might be eligible for HBO, given that this is a gas-forming bacteria. 12/24/16 Stable skin changes post op. We appreciate Dr Archuleta's help. Dr Lechuga will be in early tomorrow to decide whether or not additional debridement of the skin would benefit her at this point. We'll hold her NPO should surgery be indicated, so that we can do the surgery tomorrow between dialysis days. This was discussed/explained to the patient and her . 12/26/2016. Postop debridement with large skin defect of the right lower leg. Secondary to hematoma with multiple organisms, including a clostridium perfringens. Labs are stable. Dr. Archuleta was present during the dressing change, and feels strongly that she will need daily wound care. Dr. Archuleta also feels that she does need to continue the clindamycin by mouth at discharge , at least for the short-term. We have obtained new cultures, so hopefully this can be tailored soon. I Spoke with Mrs. Moreau about the possibility of discharge; she feels she is not going to be ready to manage this at home today. We will go ahead and let her finish dialysis and plan to stay another day. I will come in and reassess her tomorrow and will see how she feels about discharge at that point. I have spoken with Dina at stay home, and she was present for the wound assessment today. Dina has also interviewed Mr. Moreau and he and other family members feel they will be able to participate in her wound care as well. This is a large wound, and I am in agreement with Dr. Archuleta that daily wound care will benefit her far more than every other day at this point. Current Visit: Yes Subjective Patient reports: Present: other (Patient is seen while on dialysis. She is somewhat sleepy and arousable; she has had some postop pain but is not unusually uncomfortable.) Exam - Constitutional Vitals: Period Temp Pulse Resp BP Sys/Harrison Pulse Ox Last 24 Hr 97 F-100.6 F 66-94 16-20 111-159/50-76 91-100 General appearance: no acute distress, morbidly obese - Extremities Exam Extremities exam: Present: other (Right lower leg wound is examined. Postop wound is clean and very moist. There is no overt bleeding or oozing. There is no advancing erythema. Edema is well controlled. I see no new necrotic areas except for at the extreme lateral aspect superiorly is a 1 x 0.5 cm area of darkened scan; this may be continued ecchymosis but I am suspicious that it does represent a small area of skin loss. I see no) Results - Labs CBC & BMP: 12/26/16 06:18 12/26/16 06:18 Lab Results: I have reviewed the past 24 hour labs (Postop labs noted.) Quality Measures - VTE Contraindication to Pharmacological VTE Prophylaxis: High Risk of Bleeding
[2016-12-26] MEDS: SEVELAMER CARBONATE 800 MG TABLET PO SCH ×3 (12:01→16:53)
[2016-12-26] MEDS: INSULIN REGULAR 100 UNIT/ML SUBCUT SCH ×4 (12:02→20:35)
[2016-12-26] MEDS: INSULIN GLARGINE 100 UNIT/ML SUBCUT SCH ×2 (12:02→16:52)
[2016-12-26] MEDS: GENTAMICIN 0.1% OINT 15 GM TUBE TOP SCH ×3 (12:03→20:33)
[2016-12-26] MEDS: LACTOBACILLUS ACIDOPHILUS/BULGARICUS CAPLET PO SCH ×2 (12:33→20:32)
[2016-12-26] MEDS: DOCUSATE SODIUM 100 MG CAPSULE PO SCH ×2 (12:33→20:32)
[2016-12-26] MEDS: PRAVASTATIN 40 MG TABLET PO SCH (12:33)
[2016-12-26] MEDS: ASPIRIN EC 81 MG TABLET PO SCH (12:33)
[2016-12-26] MEDS: CINACALCET 30 MG TABLET PO SCH (12:33)
[2016-12-26] MEDS: METOCLOPRAMIDE 5 MG TABLET PO SCH (12:34)
[2016-12-26] MEDS: GABAPENTIN 100 MG CAPSULE PO SCH ×3 (12:34→20:32)
[2016-12-26] MEDS: GLIMEPIRIDE 4 MG TABLET PO SCH (12:34)
[2016-12-26] MEDS: MIDODRINE 5 MG TABLET PO SCH (12:34)
[2016-12-26] MEDS: SERTRALINE 50 MG TABLET PO SCH (12:34)
[2016-12-26] MEDS: PANTOPRAZOLE 40 MG TABLET PO SCH (12:34)
--- NOTE | 2016-12-26 13:20 | Pathology Report from [facility] ---
[facility] [place] ACCESSION # : [id number] PATIENT NAME : Alba Rodrigues ORDERING DR : JODI JEAN BAPTISTE MD CLINICAL HX: Wound right lower leg POST-OP DX: Same SPECIMEN INFO: Debrided tissue right lower leg GROSS DESCRIPTION: The specimen is received in formalin labeled with the patients name and consists of an aggregate of debrided focally necrotic tissue measuring 12.5 x 9.0 cm. [employer] sections submitted in one cassette. DIAGNOSIS FOR ALBA RODRIGUES: SKIN AND SOFT TISSUE OF RIGHT LOWER LEG, DEBRIDEMENT: Inflamed ulceration and hemorrhage. COLLECTED DATE: 12/25/2016 [facility] REPORT DATE: 12/26/2016 ELECTRONICALLY SIGNED BY: Chapincito Campoverde M.D. 12/26/2016 - 10:32:49 [facility] CENTERRekha
[2016-12-27] MEDS: SODIUM CHLORIDE 0.9% 250 ML IV SCH ×2 (00:40→06:15)
[2016-12-27] MEDS: ALBUTEROL/IPRATROPIUM 3 ML NEB RESP TX SCH ×3 (02:37→12:43)
[2016-12-27] MEDS: CLINDAMYCIN INJ 600 MG in PREMIX 1 EACH IV SCH ×2 (05:59→11:18)
[2016-12-27 07:54] VITALS: BP 101/52
--- NOTE | 2016-12-27 08:06 | Family Practice Progress Note ---
Family Practice - PN: Subj Interval history: Patient seen this morning she is very alert and oriented. She has a large right lower extremity wound that was debrided yesterday. She is being followed by surgery as well as infectious disease. She is breathing easily no chest pain and has been having good bowel movements. She did have a strong desire to go home if possible but will have surgery look at her as well as look at the wound and make the decision today if they do want discharge I will be happy to do this. Exam (Progress Note) - Constitutional Vitals: Period Temp Pulse Resp BP Sys/Harrison Pulse Ox Last 24 Hr 96.8 F-98.4 F 78-91 15-20 101-132/52-67 90-100 Exam: Generally stable no acute distress. She is afebrile and weight is stable. She does not void, is on dialysis. Did have a bowel movement yesterday HEENT neck is supple trachea midline Cardiovascular no chest pain, no gallop or rub Lungs clear denies shortness of breath Abdomen soft nondistended Extremity has Unna boot on at this time Results - Labs CBC & BMP: 12/26/16 06:18 12/26/16 06:18 Assessment and Plan (1) Hematoma of right lower extremity Status: Acute Assessment and plan: 12/27/2016: Patient is getting wound care and there is desire that she get daily wound care at home if we discharge her Current Visit: Yes (2) End-stage renal disease on hemodialysis Status: Chronic Assessment and plan: 12/27/2016: End-stage renal disease and she is on dialysis. Current Visit: Yes Quality Measures - VTE Contraindication to Pharmacological VTE Prophylaxis: High Risk of Bleeding
[2016-12-27] MEDS: INSULIN REGULAR 100 UNIT/ML SUBCUT SCH ×2 (08:09→11:13)
[2016-12-27] MEDS: INSULIN GLARGINE 100 UNIT/ML SUBCUT SCH (08:10)
[2016-12-27] MEDS: DOCUSATE SODIUM 100 MG CAPSULE PO SCH (08:34)
[2016-12-27] MEDS: SERTRALINE 50 MG TABLET PO SCH (08:34)
[2016-12-27] MEDS: PRAVASTATIN 40 MG TABLET PO SCH (08:34)
[2016-12-27] MEDS: ASPIRIN EC 81 MG TABLET PO SCH (08:34)
[2016-12-27] MEDS: LACTOBACILLUS ACIDOPHILUS/BULGARICUS CAPLET PO SCH (08:35)
[2016-12-27] MEDS: MIDODRINE 5 MG TABLET PO SCH (08:35)
[2016-12-27] MEDS: GABAPENTIN 100 MG CAPSULE PO SCH (08:35)
[2016-12-27] MEDS: GLIMEPIRIDE 4 MG TABLET PO SCH (08:35)
[2016-12-27] MEDS: SEVELAMER CARBONATE 800 MG TABLET PO SCH ×2 (08:35→11:18)
[2016-12-27] MEDS: CINACALCET 30 MG TABLET PO SCH (08:35)
[2016-12-27] MEDS: PANTOPRAZOLE 40 MG TABLET PO SCH (08:35)
[2016-12-27] MEDS: METOCLOPRAMIDE 5 MG TABLET PO SCH (08:35)
[2016-12-27] MEDS: GENTAMICIN 0.1% OINT 15 GM TUBE TOP SCH (09:37)
--- NOTE | 2016-12-27 09:50 | Nephrology Progress Note ---
Nephrology - PN: Subj Interval history: Patient denies shortness of breath. Review of systems GI she denies nausea or vomiting Physical exam general the patient chronically ill-appearing but in no acute distress, patient has trace to 1+ pretibial edema on the left Assessment/plan 1. End-stage renal disease-patient dialyzed yesterday 2. Leg wound-this patient apparently had a gas-forming bacterial infection is to have wound changes daily for this she continues on clindamycin 3. Diabetes mellitus this is controlled 4. Secondary hyperparathyroidism-we will continue Renvela Exam (PN)-Nephrology - Vital Signs Vital signs: Period Temp Pulse Resp BP Sys/Harrison Pulse Ox Last 24 Hr 96.8 F-98.4 F 78-91 15-20 101-132/52-67 90-100 - Lab 12/26/16 06:18 12/26/16 06:18 Most recent lab results Calcium 8.4 MG/DL (8.5-10.1) L 12/26/16 06:18 Phosphorus 5.4 MG/DL (2.5-4.9) H 12/21/16 02:25 Magnesium 2.5 MG/DL (1.8-2.4) H 12/21/16 02:26
--- NOTE | 2016-12-27 10:29 | Discharge Summary ---
Hospital Course - Hospital Course Hospital Course: Discharge summary 12/27/2016. 1. hematoma right lower extremity 2. type 2 diabetes mellitus 3. End-stage renal disease on hemodialysis 4. Morbid obesity 5. Chronic venous stasis disease 6. 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 Anemia of chronic disease Brief summary-this 76-year-old female patient was referred by Dr. Marina after sustaining a traumatic injury to the right anterior lower leg. This resulted in a large hematoma, and had failed outpatient conservative treatment. Dr. Lechuga was concerned that the area had become infected, and when she was seen in the office on , he felt it needed excisional debridement. She was admitted, and after hemodialysis was taken to surgery on , where a large hematoma was evacuated under a skin flap on the anterior tibia of the right leg. This was felt to be a questionable area of viable skin flap, and after cleaning the area well, taking deep tissue cultures, and irrigating the wound, the skin was reapproximated and wound VAC was placed over the flap in an effort to get the area to epithelialize. She was placed on broad-spectrum antibiotics and medical management. After 3 days the wound VAC was changed, and it was felt that the flap was still questionably viable. Cultures begin to emerge which suggested an anaerobic organism. Infectious diseases was consulted, and her antibiotics were tailored. When the final culture was revealed it was read as a Clostridium perfringens. She was referred to [facility] wound healing center for consideration of HBO treatment but this was declined. During this time she continued with hemodialysis and antibiotics, including the need for transfusion due to her acute on chronic anemia. Dr. Archlueta, infectious diseases surgical product sales consultant, tailored her antibiotics, feeling the need to initiate clindamycin as well as Bacid. These were started, and with the second wound VAC change on December 24, it was evident that the skin flap had not survived and there was a good deal of nonviable tissue present. In the face of a gas- forming bacteria such as Clostridium perfringens, it was felt that this increased the potential for worsening of her situation, and the patient was scheduled for additional surgery to remove the infected tissue. She was returned to the operating room on 12/25/2016, and extensive full-thickness skin debridement was performed, resulting in a large approximately 17 x 16 x 1.5 cm skin defect. Postoperatively her hemoglobin and hematocrit have remained stable , and she has tolerated her wound care fairly well. We have elected to use Silvadene for daily dressing changes, in hopes of managing the gram-negative aspect of her organisms, and have continued the clindamycin and Bacid. Yesterday, she did have leukocytosis of 15,000 and a low-grade temp, so we elected to postpone discharge. Today however, she is feeling much better, is afebrile, she is handling her wound care without a great deal of pain, and she is anxious to go home. We have repeated her CBC, and this is pending, but we have arranged for home health to perform daily wound care until the patient's family we will have her contact Dr. Marina's office for guidance as to when she needs to be seen for medical management., which includes a registered nurse, has been taught to manage her dressing changes during the days when home health is not present. She can can resume her Thursday dialysis schedule, and have home health see her 2-3 times weekly. We will plan for Dr. Terry to see her in our office in approximately 2 weeks. We will continue the clindamycin and Bacid for 1 week, or until the final cultures have been reported. We will plan to follow-up with Dr. Archuleta in approximately 2 weeks as well. - Time spent with patient Time with patient DS: Greater than 30 minutes Diagnosis - Discharge Diagnosis (1) Hematoma of right lower extremity Status: Acute (2) Bacterial infection due to Clostridium perfringens Status: Acute (3) Traumatic hematoma of right lower leg with infection Status: Acute (4) End-stage renal disease on hemodialysis Status: Chronic (5) Diabetes Status: Chronic (6) Morbid obesity Status: Chronic (7) Anemia, chronic disease Status: Chronic Specialty Discharge - Follow Up or Referrals Follow up with: Maximiliano Lechuga MD [Physician] - (Call our office Thursday to schedule a 2 week follow-up appointment) Carole Kemp MD [Physician] - (Call Dr. Gutiérrez's office Thursday to see when she needs to follow-up with Dr. Archuleta) Discharge Plan - Discharge Data Disposition: Home Health Service Condition at Discharge: Stable Discharge Diet: diabetic diet Activity: increase activity as tolerated Hygiene: keep area(s) dry Weight Bearing at Discharge: weight bear as tolerated Contact your physician if you experience:: fever over 101, Redness or swelling, Nausea/Vomiting, Shortness of breath, Bleeding, pain uncontrolled by pain medications Wound / Dressing Care Instructions: NEW DAILY wound care orders: Remove outer dressings and gently wash right lower leg wound with mixture of Rosangela-Care and normal saline. Gently removed as much Silvadene as possible, and poor additional saline over the wound to rinse. Pat periwound skin dry. Place a large sheet of Mepitel or Adaptic as contact layer over wound bed. Place Silvadene cream on the wound bed. Place two ABD pads over the contact layer. Aquaphor to remainder of leg and foot. Heel pad to heel. Wrap from base of toes to the popliteal space with overlapping layers of cast padding and secure lightly with Coban. Use foam heel protection boots to offload heels. - Discharge Medications New Chlorhexidine 4% Soln [Hibiclens] 1 applic TOP DAILY #118 ml Lactobacillus Acidoph/Bulgar [Bacid] 2 caplet PO BID #30 caplet oxyCODONE/ACETAMINOPHEN 5-325 [Percocet 5-325] 1 tablet PO Q6H PRN #14 tablet PRN Reason: Pain Moderate (4-7) Silver Sulfadiazine 1% Cream [Silvadene 1% Cream] 1 applic TOP DAILY #400 gm Continue Sevelamer Carbonate Tab [Renvela Tab] 800 mg PO TID W/MEALS Cinacalcet [Sensipar] 30 mg PO DAILY Midodrine HCl 5 mg PO DAILY Aspirin [Ecotrin] 81 mg PO DAILY Glimepiride [Amaryl] 6 mg PO DAILY W/BREAKFAST Sertraline [Zoloft] 50 mg PO DAILY Pravastatin Sodium 80 mg PO DAILY Metoclopramide HCl 5 mg PO DAILY Gabapentin 100 mg PO TID Discontinued Ciprofloxacin Tab [Cipro Tab] 250 mg PO DAILY - Follow Up or Referral - Forms/Instructions Additional Discharge Instructions: PRINT A COPY OF THE WOUND CARE INSTRUCTIONS AND SEND A COPY TO ISHAAN AT [facility]. ALSO PRINT A COPY AND SEND WITH THE PATIENT Exam - Constitutional Vitals: Period Temp Pulse Resp BP Sys/Harrison Pulse Ox Last 24 Hr 96.8 F-98.4 F 78-91 15-20 101-132/52-67 90-100 General appearance: no acute distress, morbidly obese - Head Head exam: Present: normocephalic - Respiratory Respiratory exam: Present: clear to auscultation bilaterally - Cardiovascular Cardiovascular exam: Present: regular rate and rhythm - GI/Abdominal GI/Abdominal exam: Present: other (Morbidly obese, protuberant, but soft without guarding, rebound tenderness, or mass) - Extremities Exam Extremities exam: Present: other (Right lower extremity with large, moist, skin defect. There is no oozing, no gross purulence, no advancing erythema, no gross ischemic change. She has mild 1+ edema bilaterally, no calf tenderness, no unusual pain or skin rash or irritation. I see no evidence of pressure changes.) Discharge Results Procedures and tests throughout hospitalization: Pending Orders 12/25/16 12:13 Tissue (Biopsy) Culture and GS Routine 12/26/16 11:29 Blood Culture Stat 12/27/16 10:17 CBC [Comp Blood Count Auto Diff] Routine Labs on day of discharge: Labs from last 24 hours 12/27/16 12/26/16 12/26/16 07:57 19:52 15:18 POC Glucose 176 H 147 H 166 H 12/26/16 12:21 POC Glucose 174 H Preliminary micro results at discharge 12/25/16 12:13 Tissue Culture - Preliminary Leg - Rt Lower Yeast - Additional Comments Today's CBC is pending. DS: Provider Date of admission: 12/17/16 16:38 Primary care physician: Indio Marina MD Attending physician on admission: Maximiliano Lechuga MD Consults: 12/17/16 16:46 Consult to Anesthesiology [CONS] Routine Consulting Provider: Reason for Anesthesiology: Pre-op Clearance 12/17/16 16:49 Consult to Case Mgmt/Social Srvs [CONS] Routine Reason for Case Mgmt/Social Srvs: Discharge Planning Home Health Wound Vac Consult Comment: wound care to the right leg Consult to Wound Care - [place] [CONS] Routine Reason for Wound Care: Wound Care Management Consult Comment: hematoma of the right leg 12/17/16 16:52 Consult to Physician [CONS] Routine Comment: Consulting Provider: Indio Marina Consulting Provider Notified: Yes When should Consulting Provider be notified: Now Person Notified: lori [email or web address] Date Notified: 12/18/16 Time Notified: 09:31 Consult Notification Comment: Pt known to you for surgery tomorrow. please help with multiple medical probles. 12/17/16 16:53 Consult to Physician [CONS] Routine Comment: Consulting Provider: Adair Guevara Consulting Provider Notified: Yes When should Consulting Provider be notified: Now Consult to Specialist Group: Nephrology When should Consulting Provider be notified: In am Person Notified: eduardo called Date Notified: 12/18/16 Time Notified: 08:20 Consult Notification Comment: Dialysis patient with hematoma of the right leg for surgery. 12/18/16 11:36 Consult to Physical Therapy [CONS] Routine Reason for Physical Therapy: Evaluate and Treat Start Therapy: Tomorrow Consult Comment: Ambulate with walker with walking boot in place 12/23/16 09:18 Consult to Pharmacy [CONS] Routine Reason for Pharmacy Consult: Dose/Manage Vancomycin 12/23/16 09:19 Consult to Physician [CONS] Routine Comment: Consulting Provider: Carole Kemp Consulting Provider Notified: Yes When should Consulting Provider be notified: Now Person Notified: carlotta called Date Notified: 12/24/16 Time Notified: 09:54 Consult Notification Comment: Pt with large infected hematoma; C&S with positive anaerobic culture= C.perfringens. Please advise 12/25/16 07:46 Consult to Anesthesiology [CONS] Routine Consulting Provider: Reason for Anesthesiology: Pre-op Clearance 12/25/16 12:35 Consult to Case Mgmt/Social Srvs [CONS] Routine Reason for Case Mgmt/Social Srvs: Discharge Planning Home Health Swingbed/SNF/Correction Other Consult Comment: Will need every other day dressing changes as family were they want swing b Discharging clinician: Kiana Mckeon CNP, R
[2016-12-27 10:45] LABS: Basophils % 0.4 % (0.0-0.8); Eosinophils # 0.1 10*3/uL (0.0-0.87); Eosinophils % 1.1 % (0.00-10.9); Hematocrit 27.7 VOL% (35.7-47.0); Hemoglobin 8.9 GM/DL (12.0-16.0); Immature Granulocytes % 1.5 %; Immature Granulocytes Absolute 0.12 #; Lymphocytes # 0.9 10*3/uL (1.4-4.0); Lymphocytes % 10.8 % (21.3-54.2); Mean Corpuscular HGB Conc 32.1 GM/DL (32-36); Mean Corpuscular Hemoglobin 32 PG (27-34); Mean Corpuscular Volume 98.6 FL (87-102); Monocytes # 0.7 10*3/uL (0.11-0.8); Monocytes % 8.5 % (1.7-12.7); Neutrophils # 6.1 10*3/uL (1.4-7.4); Neutrophils % 77.7 % (38.7-73.9); Platelet Count 237 T/CUMM (130-400); Red Blood Count 2.81 MC/CUMM (3.8-5.5); Red Cell Distribution Width 14.9 % (9.3-17.3); White Blood Count 7.9 T/CUMM (4-12)
--- NOTE | 2016-12-27 11:04 | Event Note ---
I have seen this patient and agree with the note by LANIE La. The patient is ready for discharge and will follow up with Dr. Lechuga outpatient.
== END 2016-12-27 13:58 | disposition home health service (06) | DRG 570 ==
LOC: N.ULTRA 11:35 → N.3E 11:35
PROVIDERS: ADMIT Specialist; ATTEND Internal Medicine

== ENCOUNTER 2018-02-23 15:05 | Inpatient (IN) ==
[2018-02-23] MEDS ORDERED: ALBUTEROL/IPRATROPIUM 3 ML NEB RESP TX STA (15:32)
[2018-02-23] MEDS ORDERED: MORPHINE 4 MG/1 ML VIAL IV STA (15:32)
[2018-02-23] MEDS ORDERED: methylPREDNISolone SOD SUC 125 MG/2 ML VIAL IV STA (15:32)
[2018-02-23] MEDS ORDERED: ONDANSETRON 4 MG/2 ML VIAL IV STA (15:32)
[2018-02-23 16:21] LABS: Basophils # 0.1 10*3/uL (0.0-0.2); Basophils % 0.5 % (0.0-0.8); Eosinophils % 0.2 % (0.00-10.9); Hematocrit 39.4 VOL% (35.7-47.0); Lymphocytes # 0.9 10*3/uL (1.4-4.0); Mean Corpuscular HGB Conc 30.5 GM/DL (32-36); Mean Corpuscular Hemoglobin 30 PG (27-34); Mean Corpuscular Volume 99.5 FL (87-102); Mean Platelet Volume 11.3 FL (9.6-12.0); Monocytes # 0.9 10*3/uL (0.11-0.8); Monocytes % 8.3 % (1.7-12.7); NRBC # 0.02 10*3/uL; Neutrophils # 8.3 10*3/uL (1.4-7.4); Platelet Count 226 T/CUMM (130-400); Red Blood Count 3.96 MC/CUMM (3.8-5.5); Red Cell Distribution Width 15.2 % (9.3-17.3); White Blood Count 10.2 T/CUMM (4-12)
[2018-02-23 16:57] LABS: INR 1.2; PT Patient Result 12.2 SECS
[2018-02-23 17:02] LABS: Lactic Acid 1.7 MMOL/L (0.4-2.0)
[2018-02-23 19:17] LABS: Albumin 2.6 G/DL (3.4-5.0); Calcium 9.8 MG/DL (8.5-10.1); Osmolality,Calculated 281.5 MOS/KG (273-304); Potassium 5.4 MMOL/L (3.5-5.1); Total Protein 7.7 G/DL (6.4-8.3)
[2018-02-23] MEDS ORDERED: oxyCODONE/ACETAMINOPHEN 5-325 MG TABLET PO PRN (19:26)
[2018-02-23] MEDS ORDERED: GLUCAGON 1 MG VIAL IM PRN (19:26)
[2018-02-23] MEDS ORDERED: LACTULOSE 20 GM/30 ML UDCUP PO PRN (19:26)
[2018-02-23] MEDS ORDERED: MIDODRINE 5 MG TABLET PO PRN (19:26)
[2018-02-23] MEDS ORDERED: ACETAMINOPHEN 325 MG TABLET PO PRN (19:26)
[2018-02-23] MEDS ORDERED: DEXTROSE 50% 25 GM/50 ML VIAL IV PRN (19:26)
[2018-02-23] MEDS ORDERED: ALBUTEROL/IPRATROPIUM 3 ML NEB RESP TX PRN (19:26)
[2018-02-23] MEDS ORDERED: MORPHINE 4 MG/1 ML VIAL IV PRN (19:26)
[2018-02-23] MEDS ORDERED: ONDANSETRON 4 MG/2 ML VIAL IV PRN (19:26)
[2018-02-23] MEDS: GABAPENTIN 100 MG CAPSULE PO SCH (23:23)
[2018-02-23] MEDS: DOCUSATE SODIUM 100 MG CAPSULE PO SCH (23:23)
[2018-02-24] MEDS: SODIUM CHLORIDE 0.9% 1,000 ML IV SCH (01:11)
[2018-02-24] MEDS: NON-FORMULARY MEDICATION (Vit C/Vit E Ac/Lut/Copper/Zinc [Preservision Lutein Softgel] 1 E PO SCH ×3 (01:14→22:10)
[2018-02-24] MEDS: INSULIN REGULAR 100 UNIT/ML SUBCUT SCH ×4 (01:19→17:16)
[2018-02-24 04:38] LABS: Basophils % 0.1 % (0.0-0.8); Hematocrit 36.2 VOL% (35.7-47.0); Hemoglobin 10.8 GM/DL (12.0-16.0); Lymphocytes # 0.4 10*3/uL (1.4-4.0); Lymphocytes % 4.5 % (21.3-54.2); Mean Corpuscular HGB Conc 29.8 GM/DL (32-36); Mean Corpuscular Hemoglobin 30 PG (27-34); Mean Corpuscular Volume 100.3 FL (87-102); Mean Platelet Volume 10.8 FL (9.6-12.0); Monocytes # 0.2 10*3/uL (0.11-0.8); Monocytes % 1.9 % (1.7-12.7); Neutrophils # 8.9 10*3/uL (1.4-7.4); Neutrophils % 91.5 % (38.7-73.9); Platelet Count 224 T/CUMM (130-400); Red Blood Count 3.61 MC/CUMM (3.8-5.5); White Blood Count 9.8 T/CUMM (4-12)
[2018-02-24 04:56] LABS: Albumin 2.5 G/DL (3.4-5.0); Calcium 9.6 MG/DL (8.5-10.1); Osmolality,Calculated 287.4 MOS/KG (273-304); Potassium 4.1 MMOL/L (3.5-5.1); Total Protein 6.9 G/DL (6.4-8.3)
[2018-02-24 05:20] LABS: Band Neutrophils 1 % (0-10); Hypochromasia 1+; Lymphocytes 2 % (20-55); Ovalocytes Slight; Platelet Estimate Adequate; Segmented Neutrophils 91 % (50-85); Total Cells Counted 100
[2018-02-24] MEDS: DOCUSATE SODIUM 100 MG CAPSULE PO SCH ×2 (09:56→22:08)
[2018-02-24] MEDS: CALCIUM CARBONATE CHEW 500 MG TABLET PO SCH ×3 (09:56→16:25)
[2018-02-24] MEDS: PRAVASTATIN 40 MG TABLET PO SCH (09:57)
[2018-02-24] MEDS: PANTOPRAZOLE 40 MG TABLET PO SCH (09:57)
[2018-02-24] MEDS: GABAPENTIN 100 MG CAPSULE PO SCH ×3 (09:57→22:08)
[2018-02-24] MEDS: GLIMEPIRIDE 4 MG TABLET PO SCH (09:57)
[2018-02-24] MEDS: SERTRALINE 50 MG TABLET PO SCH (09:57)
[2018-02-24] MEDS: ASPIRIN EC 81 MG TABLET PO SCH (09:58)
[2018-02-24] MEDS ORDERED: METOPROLOL TARTRATE 25 MG TABLET PO SCH (11:00)
[2018-02-24] MEDS: APIXABAN 2.5 MG TABLET PO SCH ×2 (12:16→22:08)
[2018-02-24] MEDS ORDERED: AMIODARONE INJ 150 MG in DEXTROSE 5% 100 ML IV ONE (18:09)
[2018-02-24] MEDS ORDERED: AMIODARONE INJ 450 MG in DEXTROSE 5% 241 ML IV SCH (18:30)
[2018-02-25] MEDS: SODIUM CHLORIDE 0.9% 1,000 ML IV SCH ×2 (00:36→23:05)
[2018-02-25] MEDS: INSULIN REGULAR 100 UNIT/ML SUBCUT SCH ×4 (00:44→18:41)
[2018-02-25] MEDS: AMIODARONE INJ 450 MG in DEXTROSE 5% 241 ML IV SCH ×2 (04:10→23:05)
[2018-02-25 04:59] LABS: Basophils % 0.1 % (0.0-0.8); Eosinophils % 0.1 % (0.00-10.9); Hematocrit 36.7 VOL% (35.7-47.0); Hemoglobin 10.9 GM/DL (12.0-16.0); Immature Granulocytes % 1.3 %; Immature Granulocytes Absolute 0.15 #; Lymphocytes # 0.9 10*3/uL (1.4-4.0); Lymphocytes % 8.1 % (21.3-54.2); Mean Corpuscular HGB Conc 29.7 GM/DL (32-36); Mean Corpuscular Hemoglobin 30 PG (27-34); Mean Corpuscular Volume 102.5 FL (87-102); Mean Platelet Volume 10.2 FL (9.6-12.0); Monocytes # 1.2 10*3/uL (0.11-0.8); Monocytes % 9.9 % (1.7-12.7); NRBC # 0.03 10*3/uL; Neutrophils # 9.4 10*3/uL (1.4-7.4); Neutrophils % 80.5 % (38.7-73.9); Platelet Count 233 T/CUMM (130-400); Red Blood Count 3.58 MC/CUMM (3.8-5.5); Red Cell Distribution Width 15.2 % (9.3-17.3); White Blood Count 11.7 T/CUMM (4-12)
[2018-02-25 05:06] LABS: Osmolality,Calculated 282.8 MOS/KG (273-304); Potassium 3.3 MMOL/L (3.5-5.1)
[2018-02-25 05:10] LABS: Risk Ratio 2.55; VLDL CHOLESTEROL 20.8 MG/DL
[2018-02-25] MEDS: GABAPENTIN 100 MG CAPSULE PO SCH ×3 (08:59→20:50)
[2018-02-25] MEDS: PRAVASTATIN 40 MG TABLET PO SCH (08:59)
[2018-02-25] MEDS: ASPIRIN EC 81 MG TABLET PO SCH (08:59)
[2018-02-25] MEDS: PANTOPRAZOLE 40 MG TABLET PO SCH (08:59)
[2018-02-25] MEDS: CALCIUM CARBONATE CHEW 500 MG TABLET PO SCH ×3 (08:59→17:11)
[2018-02-25] MEDS: DOCUSATE SODIUM 100 MG CAPSULE PO SCH ×2 (08:59→20:50)
[2018-02-25] MEDS: GLIMEPIRIDE 4 MG TABLET PO SCH (09:00)
[2018-02-25] MEDS: APIXABAN 2.5 MG TABLET PO SCH ×2 (09:00→20:50)
[2018-02-25] MEDS: SERTRALINE 50 MG TABLET PO SCH (09:00)
[2018-02-25] MEDS ORDERED: POTASSIUM CHLORIDE 20 MEQ TABLET PO ONE (09:47)
[2018-02-25] MEDS: NON-FORMULARY MEDICATION (Vit C/Vit E Ac/Lut/Copper/Zinc [Preservision Lutein Softgel] 1 E PO SCH ×2 (11:07→20:59)
[2018-02-26] MEDS: INSULIN REGULAR 100 UNIT/ML SUBCUT SCH ×4 (01:17→17:07)
[2018-02-26] MEDS: AMIODARONE INJ 450 MG in DEXTROSE 5% 241 ML IV SCH ×2 (01:17→18:04)
[2018-02-26 04:33] LABS: Basophils % 0.3 % (0.0-0.8); Eosinophils % 0.2 % (0.00-10.9); Hematocrit 36.4 VOL% (35.7-47.0); Hemoglobin 10.8 GM/DL (12.0-16.0); Immature Granulocytes % 1.5 %; Immature Granulocytes Absolute 0.15 #; Lymphocytes % 9.9 % (21.3-54.2); Mean Corpuscular HGB Conc 29.7 GM/DL (32-36); Mean Corpuscular Hemoglobin 30 PG (27-34); Mean Corpuscular Volume 100.6 FL (87-102); Mean Platelet Volume 10.7 FL (9.6-12.0); Monocytes % 10.1 % (1.7-12.7); NRBC # 0.04 10*3/uL; Neutrophils # 7.8 10*3/uL (1.4-7.4); Platelet Count 228 T/CUMM (130-400); Red Blood Count 3.62 MC/CUMM (3.8-5.5); Red Cell Distribution Width 15.6 % (9.3-17.3); White Blood Count 10.1 T/CUMM (4-12)
[2018-02-26 04:49] LABS: Calcium 8.9 MG/DL (8.5-10.1); Osmolality,Calculated 272.4 MOS/KG (273-304); Potassium 3.9 MMOL/L (3.5-5.1)
[2018-02-26] MEDS: GLIMEPIRIDE 4 MG TABLET PO SCH (08:37)
[2018-02-26] MEDS: CALCIUM CARBONATE CHEW 500 MG TABLET PO SCH ×3 (08:37→17:07)
[2018-02-26] MEDS: SERTRALINE 50 MG TABLET PO SCH (08:38)
[2018-02-26] MEDS: APIXABAN 2.5 MG TABLET PO SCH ×2 (08:38→21:10)
[2018-02-26] MEDS: PANTOPRAZOLE 40 MG TABLET PO SCH (08:38)
[2018-02-26] MEDS: PRAVASTATIN 40 MG TABLET PO SCH (08:38)
[2018-02-26] MEDS: GABAPENTIN 100 MG CAPSULE PO SCH ×3 (08:38→21:09)
[2018-02-26] MEDS: ASPIRIN EC 81 MG TABLET PO SCH (08:38)
[2018-02-26] MEDS: DOCUSATE SODIUM 100 MG CAPSULE PO SCH ×2 (08:38→21:10)
[2018-02-26] MEDS: NON-FORMULARY MEDICATION (Vit C/Vit E Ac/Lut/Copper/Zinc [Preservision Lutein Softgel] 1 E PO SCH ×2 (12:54→21:12)
[2018-02-26] MEDS: SODIUM CHLORIDE 0.9% 1,000 ML IV SCH (21:10)
[2018-02-27] MEDS: INSULIN REGULAR 100 UNIT/ML SUBCUT SCH ×4 (01:13→18:41)
[2018-02-27] MEDS: AMIODARONE INJ 450 MG in DEXTROSE 5% 241 ML IV SCH ×3 (01:13→19:06)
[2018-02-27 05:11] LABS: Basophils % 0.3 % (0.0-0.8); Eosinophils % 0.3 % (0.00-10.9); Hematocrit 36.8 VOL% (35.7-47.0); Immature Granulocytes % 1.2 %; Immature Granulocytes Absolute 0.13 #; Lymphocytes # 0.9 10*3/uL (1.4-4.0); Lymphocytes % 8.2 % (21.3-54.2); Mean Corpuscular HGB Conc 29.9 GM/DL (32-36); Mean Corpuscular Hemoglobin 30 PG (27-34); Mean Corpuscular Volume 100.8 FL (87-102); Monocytes # 0.8 10*3/uL (0.11-0.8); Monocytes % 7.7 % (1.7-12.7); NRBC # 0.05 10*3/uL; Neutrophils # 8.8 10*3/uL (1.4-7.4); Neutrophils % 82.3 % (38.7-73.9); Platelet Count 219 T/CUMM (130-400); Red Blood Count 3.65 MC/CUMM (3.8-5.5); Red Cell Distribution Width 15.7 % (9.3-17.3); White Blood Count 10.6 T/CUMM (4-12)
[2018-02-27 05:19] LABS: Calcium 8.9 MG/DL (8.5-10.1); Osmolality,Calculated 271.7 MOS/KG (273-304); Potassium 4.2 MMOL/L (3.5-5.1)
[2018-02-27] MEDS ORDERED: LIDOCAINE/PRILOCAINE CREAM 5 GM TUBE TOP ONE (08:15)
[2018-02-27] MEDS: ASPIRIN EC 81 MG TABLET PO SCH (08:52)
[2018-02-27] MEDS: GLIMEPIRIDE 4 MG TABLET PO SCH (08:52)
[2018-02-27] MEDS: PRAVASTATIN 40 MG TABLET PO SCH (08:52)
[2018-02-27] MEDS: PANTOPRAZOLE 40 MG TABLET PO SCH (08:52)
[2018-02-27] MEDS: APIXABAN 2.5 MG TABLET PO SCH ×2 (08:53→21:49)
[2018-02-27] MEDS: CALCIUM CARBONATE CHEW 500 MG TABLET PO SCH ×3 (08:53→17:12)
[2018-02-27] MEDS: DOCUSATE SODIUM 100 MG CAPSULE PO SCH ×2 (08:53→21:49)
[2018-02-27] MEDS: GABAPENTIN 100 MG CAPSULE PO SCH ×3 (08:53→21:49)
[2018-02-27] MEDS: SERTRALINE 50 MG TABLET PO SCH (08:53)
[2018-02-27] MEDS: NON-FORMULARY MEDICATION (Vit C/Vit E Ac/Lut/Copper/Zinc [Preservision Lutein Softgel] 1 E PO SCH ×2 (08:54→21:50)
[2018-02-27] MEDS: SODIUM CHLORIDE 0.9% 1,000 ML IV SCH (21:49)
[2018-02-27] MEDS: AMIODARONE 200 MG TABLET PO SCH (21:49)
[2018-02-28] MEDS: INSULIN REGULAR 100 UNIT/ML SUBCUT SCH ×4 (01:50→19:45)
[2018-02-28] MEDS: CALCIUM CARBONATE CHEW 500 MG TABLET PO SCH ×3 (08:33→17:24)
[2018-02-28] MEDS: GLIMEPIRIDE 4 MG TABLET PO SCH (08:33)
[2018-02-28] MEDS: AMIODARONE 200 MG TABLET PO SCH ×2 (08:33→21:31)
[2018-02-28] MEDS: APIXABAN 2.5 MG TABLET PO SCH ×2 (08:33→21:31)
[2018-02-28] MEDS: PANTOPRAZOLE 40 MG TABLET PO SCH (08:34)
[2018-02-28] MEDS: ASPIRIN EC 81 MG TABLET PO SCH (08:34)
[2018-02-28] MEDS: PRAVASTATIN 40 MG TABLET PO SCH (08:34)
[2018-02-28] MEDS: GABAPENTIN 100 MG CAPSULE PO SCH ×3 (08:34→21:31)
[2018-02-28] MEDS: SERTRALINE 50 MG TABLET PO SCH (08:34)
[2018-02-28] MEDS: DOCUSATE SODIUM 100 MG CAPSULE PO SCH ×2 (08:34→21:31)
[2018-02-28] MEDS: NON-FORMULARY MEDICATION (Vit C/Vit E Ac/Lut/Copper/Zinc [Preservision Lutein Softgel] 1 E PO SCH ×2 (08:37→21:32)
[2018-02-28] MEDS: SODIUM CHLORIDE 0.9% 1,000 ML IV SCH (21:31)
[2018-03-01] MEDS: INSULIN REGULAR 100 UNIT/ML SUBCUT SCH ×4 (00:11→18:03)
[2018-03-01] MEDS ORDERED: LIDOCAINE/PRILOCAINE CREAM 5 GM TUBE TOP ONE (06:00)
[2018-03-01] MEDS ORDERED: LIDOCAINE 1% 20 ML VIAL ONE (06:42)
[2018-03-01] MEDS ORDERED: HEPARIN/NACL 0.9% 2 UNITS/ML 500 ML IV ONE (06:42)
[2018-03-01] MEDS ORDERED: MEPERIDINE 25 MG/1 ML VIAL ONE (07:19)
[2018-03-01] MEDS ORDERED: MIDAZOLAM 10 MG/2 ML VIAL ONE (07:19)
[2018-03-01] MEDS: CALCIUM CARBONATE CHEW 500 MG TABLET PO SCH ×3 (09:48→16:07)
[2018-03-01] MEDS: GLIMEPIRIDE 4 MG TABLET PO SCH (09:49)
[2018-03-01] MEDS: GABAPENTIN 100 MG CAPSULE PO SCH ×3 (10:03→21:28)
[2018-03-01] MEDS: AMIODARONE 200 MG TABLET PO SCH ×3 (10:03→21:28)
[2018-03-01] MEDS: APIXABAN 2.5 MG TABLET PO SCH ×3 (10:03→21:28)
[2018-03-01] MEDS: ASPIRIN EC 81 MG TABLET PO SCH ×2 (10:03→16:08)
[2018-03-01] MEDS: DOCUSATE SODIUM 100 MG CAPSULE PO SCH ×3 (10:03→21:28)
[2018-03-01] MEDS: PRAVASTATIN 40 MG TABLET PO SCH ×2 (10:04→16:08)
[2018-03-01] MEDS: SERTRALINE 50 MG TABLET PO SCH ×2 (10:04→16:09)
[2018-03-01] MEDS: PANTOPRAZOLE 40 MG TABLET PO SCH ×2 (10:04→16:08)
[2018-03-01] MEDS: NON-FORMULARY MEDICATION (Vit C/Vit E Ac/Lut/Copper/Zinc [Preservision Lutein Softgel] 1 E PO SCH ×3 (10:04→21:28)
[2018-03-01 10:17] LABS: Basophils # 0.1 10*3/uL (0.0-0.2); Basophils % 0.6 % (0.0-0.8); Eosinophils # 0.1 10*3/uL (0.0-0.87); Eosinophils % 1.1 % (0.00-10.9); Hematocrit 36.6 VOL% (35.7-47.0); Hemoglobin 11.2 GM/DL (12.0-16.0); Immature Granulocytes % 2.3 %; Immature Granulocytes Absolute 0.18 #; Lymphocytes # 0.7 10*3/uL (1.4-4.0); Lymphocytes % 9.4 % (21.3-54.2); Mean Corpuscular HGB Conc 30.6 GM/DL (32-36); Mean Corpuscular Hemoglobin 30 PG (27-34); Mean Corpuscular Volume 97.3 FL (87-102); Mean Platelet Volume 10.1 FL (9.6-12.0); Monocytes # 0.4 10*3/uL (0.11-0.8); Monocytes % 5.2 % (1.7-12.7); Neutrophils # 6.4 10*3/uL (1.4-7.4); Neutrophils % 81.4 % (38.7-73.9); Platelet Count 238 T/CUMM (130-400); Red Blood Count 3.76 MC/CUMM (3.8-5.5); Red Cell Distribution Width 15.9 % (9.3-17.3); White Blood Count 7.9 T/CUMM (4-12)
[2018-03-01] MEDS: SODIUM CHLORIDE 0.9% 1,000 ML IV SCH (19:47)
[2018-03-02] MEDS: INSULIN REGULAR 100 UNIT/ML SUBCUT SCH ×2 (00:39→06:33)
[2018-03-02] MEDS: CALCIUM CARBONATE CHEW 500 MG TABLET PO SCH (06:43)
[2018-03-02 08:33] VITALS: BP 154/67
[2018-03-02 08:49] LABS: Calcium 8.9 MG/DL (8.5-10.1); Osmolality,Calculated 277.2 MOS/KG (273-304); Potassium 4.2 MMOL/L (3.5-5.1)
[2018-03-02] MEDS: ASPIRIN EC 81 MG TABLET PO SCH (09:45)
[2018-03-02] MEDS: PANTOPRAZOLE 40 MG TABLET PO SCH (09:45)
[2018-03-02] MEDS: PRAVASTATIN 40 MG TABLET PO SCH (09:45)
[2018-03-02] MEDS: GLIMEPIRIDE 4 MG TABLET PO SCH (09:45)
[2018-03-02] MEDS: GABAPENTIN 100 MG CAPSULE PO SCH (09:45)
[2018-03-02] MEDS: SERTRALINE 50 MG TABLET PO SCH (09:46)
[2018-03-02] MEDS: APIXABAN 2.5 MG TABLET PO SCH (09:46)
[2018-03-02] MEDS: NON-FORMULARY MEDICATION (Vit C/Vit E Ac/Lut/Copper/Zinc [Preservision Lutein Softgel] 1 E PO SCH (09:46)
[2018-03-02] MEDS: AMIODARONE 200 MG TABLET PO SCH (09:46)
[2018-03-02] MEDS: DOCUSATE SODIUM 100 MG CAPSULE PO SCH (09:46)
== END 2018-03-02 11:28 | disposition home or self-care (01) | DRG 308 ==
LOC: EDUNIT# → N.ED 15:05 → N.EDINP 18:38 → N.CC 02-24 00:19 → N.TELES 02-24 15:41
PROVIDERS: ADMIT Internal Medicine; ATTEND Internal Medicine

== ENCOUNTER 2018-03-02 12:06 | Observation (INO) ==
[2018-03-02] MEDS ORDERED: DEXTROSE 50% 25 GM/50 ML VIAL IV PRN (13:15)
[2018-03-02] MEDS ORDERED: ONDANSETRON 4 MG/2 ML VIAL IV PRN (13:15)
[2018-03-02] MEDS ORDERED: GLUCAGON 1 MG VIAL IM PRN (13:15)
[2018-03-02] MEDS ORDERED: MIDODRINE 5 MG TABLET PO PRN (14:01)
[2018-03-02] MEDS: GABAPENTIN 100 MG CAPSULE PO SCH ×2 (15:09→21:08)
[2018-03-02] MEDS: CALCIUM CARBONATE CHEW 500 MG TABLET PO SCH (17:36)
[2018-03-02] MEDS: DOCUSATE SODIUM 100 MG CAPSULE PO SCH (21:08)
[2018-03-02] MEDS: PRAVASTATIN 40 MG TABLET PO SCH (21:08)
[2018-03-02] MEDS: AMIODARONE 200 MG TABLET PO SCH (21:08)
[2018-03-02] MEDS: APIXABAN 2.5 MG TABLET PO SCH (21:09)
[2018-03-02] MEDS: MULTIVITAMIN (OCUVITE) TABLET PO SCH (21:09)
[2018-03-03] MEDS: PANTOPRAZOLE 40 MG TABLET PO SCH (08:11)
[2018-03-03] MEDS: ASPIRIN EC 81 MG TABLET PO SCH (08:12)
[2018-03-03] MEDS: APIXABAN 2.5 MG TABLET PO SCH ×2 (08:12→21:18)
[2018-03-03] MEDS: GLIMEPIRIDE 4 MG TABLET PO SCH (08:12)
[2018-03-03] MEDS: MULTIVITAMIN (OCUVITE) TABLET PO SCH ×2 (08:12→21:18)
[2018-03-03] MEDS: GABAPENTIN 100 MG CAPSULE PO SCH ×3 (08:12→21:18)
[2018-03-03] MEDS: ACETAMINOPHEN 325 MG TABLET PO PRN (08:13)
[2018-03-03] MEDS: AMIODARONE 200 MG TABLET PO SCH ×2 (08:13→21:18)
[2018-03-03] MEDS: SERTRALINE 50 MG TABLET PO SCH (08:13)
[2018-03-03] MEDS: CALCIUM CARBONATE CHEW 500 MG TABLET PO SCH ×3 (08:13→17:14)
[2018-03-03] MEDS: DOCUSATE SODIUM 100 MG CAPSULE PO SCH ×2 (08:19→21:18)
[2018-03-03] MEDS: PRAVASTATIN 40 MG TABLET PO SCH (21:18)
[2018-03-04] MEDS: SERTRALINE 50 MG TABLET PO SCH (08:21)
[2018-03-04] MEDS: DOCUSATE SODIUM 100 MG CAPSULE PO SCH ×2 (08:21→21:05)
[2018-03-04] MEDS: PANTOPRAZOLE 40 MG TABLET PO SCH (08:21)
[2018-03-04] MEDS: GLIMEPIRIDE 4 MG TABLET PO SCH (08:21)
[2018-03-04] MEDS: APIXABAN 2.5 MG TABLET PO SCH ×2 (08:21→21:06)
[2018-03-04] MEDS: ASPIRIN EC 81 MG TABLET PO SCH (08:21)
[2018-03-04] MEDS: MULTIVITAMIN (OCUVITE) TABLET PO SCH ×2 (08:21→21:07)
[2018-03-04] MEDS: GABAPENTIN 100 MG CAPSULE PO SCH ×3 (08:22→21:07)
[2018-03-04] MEDS: AMIODARONE 200 MG TABLET PO SCH ×2 (08:22→21:06)
[2018-03-04] MEDS: ACETAMINOPHEN 325 MG TABLET PO PRN (08:22)
[2018-03-04] MEDS: CALCIUM CARBONATE CHEW 500 MG TABLET PO SCH ×3 (08:22→16:15)
[2018-03-04] MEDS ORDERED: TUBERCULIN SKIN TEST 0.1 ML SYRINGE INTRADERM ONE (14:30)
[2018-03-04] MEDS: PRAVASTATIN 40 MG TABLET PO SCH (21:05)
[2018-03-04] MEDS: ZINC OXIDE PASTE 113 GM TUBE TOP SCH (21:07)
[2018-03-05] MEDS: CALCIUM CARBONATE CHEW 500 MG TABLET PO SCH ×3 (08:17→16:54)
[2018-03-05] MEDS: GLIMEPIRIDE 4 MG TABLET PO SCH (08:17)
[2018-03-05] MEDS: DOCUSATE SODIUM 100 MG CAPSULE PO SCH ×2 (08:17→22:59)
[2018-03-05] MEDS: SERTRALINE 50 MG TABLET PO SCH (08:17)
[2018-03-05] MEDS: MULTIVITAMIN (OCUVITE) TABLET PO SCH ×2 (08:18→22:58)
[2018-03-05] MEDS: oxyCODONE/ACETAMINOPHEN 5-325 MG TABLET PO PRN (08:18)
[2018-03-05] MEDS: APIXABAN 2.5 MG TABLET PO SCH ×2 (08:18→22:59)
[2018-03-05] MEDS: AMIODARONE 200 MG TABLET PO SCH ×2 (08:18→22:59)
[2018-03-05] MEDS: GABAPENTIN 100 MG CAPSULE PO SCH ×3 (08:18→22:59)
[2018-03-05] MEDS: ASPIRIN EC 81 MG TABLET PO SCH (08:18)
[2018-03-05] MEDS: PANTOPRAZOLE 40 MG TABLET PO SCH (08:18)
[2018-03-05] MEDS: ZINC OXIDE PASTE 113 GM TUBE TOP SCH ×2 (08:19→22:59)
[2018-03-05] MEDS: PRAVASTATIN 40 MG TABLET PO SCH (22:59)
[2018-03-06] MEDS: CALCIUM CARBONATE CHEW 500 MG TABLET PO SCH ×3 (09:55→16:03)
[2018-03-06] MEDS: GABAPENTIN 100 MG CAPSULE PO SCH ×3 (09:56→20:52)
[2018-03-06] MEDS: GLIMEPIRIDE 4 MG TABLET PO SCH (09:56)
[2018-03-06] MEDS: ZINC OXIDE PASTE 113 GM TUBE TOP SCH ×2 (09:56→20:55)
[2018-03-06] MEDS: DOCUSATE SODIUM 100 MG CAPSULE PO SCH ×2 (09:56→20:52)
[2018-03-06] MEDS: ASPIRIN EC 81 MG TABLET PO SCH (09:56)
[2018-03-06] MEDS: SERTRALINE 50 MG TABLET PO SCH (09:56)
[2018-03-06] MEDS: PANTOPRAZOLE 40 MG TABLET PO SCH (09:56)
[2018-03-06] MEDS: APIXABAN 2.5 MG TABLET PO SCH ×2 (09:56→20:53)
[2018-03-06] MEDS: MULTIVITAMIN (OCUVITE) TABLET PO SCH ×2 (09:56→20:52)
[2018-03-06] MEDS: oxyCODONE/ACETAMINOPHEN 5-325 MG TABLET PO PRN (09:58)
[2018-03-06] MEDS: AMIODARONE 200 MG TABLET PO SCH ×2 (09:58→20:52)
[2018-03-06] MEDS: SKIN HEALING OINT (AQUAPHOR) 50 GM TUBE TOP PRN (12:03)
[2018-03-06] MEDS: ACETAMINOPHEN 325 MG TABLET PO PRN (19:09)
[2018-03-06] MEDS: PRAVASTATIN 40 MG TABLET PO SCH (20:52)
[2018-03-07 06:38] LABS: Albumin 2.4 G/DL (3.4-5.0); Bilirubin,Total 0.8 MG/DL (0.2-1.0); Calcium 8.9 MG/DL (8.5-10.1); Potassium 4.2 MMOL/L (3.5-5.1); Total Protein 6.5 G/DL (6.4-8.3)
[2018-03-07] MEDS: CALCIUM CARBONATE CHEW 500 MG TABLET PO SCH ×3 (08:37→16:58)
[2018-03-07] MEDS: MULTIVITAMIN (OCUVITE) TABLET PO SCH ×2 (08:38→21:09)
[2018-03-07] MEDS: GLIMEPIRIDE 4 MG TABLET PO SCH (08:38)
[2018-03-07] MEDS: PANTOPRAZOLE 40 MG TABLET PO SCH (08:38)
[2018-03-07] MEDS: APIXABAN 2.5 MG TABLET PO SCH ×2 (08:38→21:09)
[2018-03-07] MEDS: GABAPENTIN 100 MG CAPSULE PO SCH ×3 (08:38→21:10)
[2018-03-07] MEDS: SERTRALINE 50 MG TABLET PO SCH (08:38)
[2018-03-07] MEDS: AMIODARONE 200 MG TABLET PO SCH ×2 (08:42→21:09)
[2018-03-07] MEDS: DOCUSATE SODIUM 100 MG CAPSULE PO SCH ×2 (08:42→21:09)
[2018-03-07] MEDS: ASPIRIN EC 81 MG TABLET PO SCH (08:42)
[2018-03-07] MEDS: SKIN HEALING OINT (AQUAPHOR) 50 GM TUBE TOP PRN (08:43)
[2018-03-07] MEDS: ZINC OXIDE PASTE 113 GM TUBE TOP SCH ×2 (08:43→21:10)
[2018-03-07] MEDS: PRAVASTATIN 40 MG TABLET PO SCH (21:09)
[2018-03-08] MEDS: SERTRALINE 50 MG TABLET PO SCH (08:10)
[2018-03-08] MEDS: AMIODARONE 200 MG TABLET PO SCH (08:10)
[2018-03-08] MEDS: DOCUSATE SODIUM 100 MG CAPSULE PO SCH (08:10)
[2018-03-08] MEDS: GABAPENTIN 100 MG CAPSULE PO SCH ×2 (08:10→14:11)
[2018-03-08] MEDS: APIXABAN 2.5 MG TABLET PO SCH (08:10)
[2018-03-08] MEDS: PANTOPRAZOLE 40 MG TABLET PO SCH (08:10)
[2018-03-08] MEDS: CALCIUM CARBONATE CHEW 500 MG TABLET PO SCH ×2 (08:10→14:11)
[2018-03-08] MEDS: ASPIRIN EC 81 MG TABLET PO SCH (08:10)
[2018-03-08] MEDS: MULTIVITAMIN (OCUVITE) TABLET PO SCH (08:10)
[2018-03-08] MEDS: ZINC OXIDE PASTE 113 GM TUBE TOP SCH (08:11)
[2018-03-08] MEDS: GLIMEPIRIDE 4 MG TABLET PO SCH (08:11)
[2018-03-08 11:35] VITALS: BP 133/62
[2018-03-08 12:43] LABS: Hepatitis A Ab IgM Quant 0.31 Index; Hepatitis A Ab IgM Result Negative (Negative); Hepatitis B Core IgM Quant 0.08 Index; Hepatitis B Core IgM Result Negative (Negative); Hepatitis B Surface Ag Quant 0.47 Index; Hepatitis B Surface Ag Result Negative (Negative); Hepatitis C Virus Ab Quant 0.09 Index; Hepatitis C Virus Ab Result Negative (Negative)
[2018-03-08] MEDS ORDERED: FAMOTIDINE 20 MG TABLET PO ONE (15:00)
== END 2018-03-08 15:44 ==
LOC: N.ED 12:06 → N.EDINP 13:15 → INTOOBSV 13:15 → N.2E 13:53
PROVIDERS: ADMIT Internal Medicine; ATTEND Internal Medicine